=== PATIENT | male | born 1980 | race Caucasian/White ===

== ENCOUNTER 2017-01-28 23:14 | Inpatient (IN) ==
[2017-01-29 00:19] LABS: Basophils % 0.6 % (0.0-0.8); Eosinophils # 0.1 10*3/uL (0.0-0.87); Eosinophils % 2.2 % (0.00-10.9); Hematocrit 34.9 VOL% (42.0-52.0); Hemoglobin 12.4 GM/DL (14.0-18.0); Immature Granulocytes % 0.4 %; Immature Granulocytes Absolute 0.02 #; Lymphocytes # 1.8 10*3/uL (1.4-4.0); Lymphocytes % 34.3 % (21.2-54.2); Mean Corpuscular HGB Conc 35.5 GM/DL (32-36); Mean Corpuscular Hemoglobin 32 PG (27-34); Mean Corpuscular Volume 89.7 FL (87-102); Monocytes # 0.5 10*3/uL (0.11-0.8); Neutrophils # 2.7 10*3/uL (1.4-7.4); Neutrophils % 53.5 % (38.7-73.9); Platelet Count 265 T/CUMM (130-400); Red Blood Count 3.89 MC/CUMM (3.8-5.5); Red Cell Distribution Width 12.6 % (9.3-17.3); White Blood Count 5.1 T/CUMM (4-12)
[2017-01-29 00:29] LABS: Partial Thromboplastin Time 24.7 SECS (0-40)
[2017-01-29 00:35] LABS: Calcium 7.9 MG/DL (8.5-10.1); Magnesium 2.1 MG/DL (1.8-2.4); Osmolality,Calculated 290.6 MOS/KG (273-304); Potassium 3.7 MMOL/L (3.5-5.1)
[2017-01-29] MEDS ORDERED: MORPHINE 2 MG/1 ML SYRINGE IV STA (00:35)
[2017-01-29] MEDS ORDERED: NITROGLYCERIN SL 0.4 MG TABLET SL STA (00:35)
[2017-01-29] MEDS ORDERED: MORPHINE 2 MG/1 ML SYRINGE ONE (00:39)
[2017-01-29 00:54] LABS: Troponin I Only < 0.015 NG/ML (0.00-0.045)
--- NOTE | 2017-01-29 01:13 | Emergency Department Note ---
Edy Moss Brittany, am scribing for, and in the presence of, Roderick Rice MD 23 :45. Krystal Moss Hans, MD, personally performed the services described in this documentation, ascribed by Crista Snow in my presence, and it is both accurate and complete . Arrival - Arrival Chief Complaint: Chest Pain Stated Complaint: chest pain ED Nursing Triage Note: Pt was at home when he begain having severe chest pain. States he was upset when it begain hurting. Has history of stents x3. Pt states "he feels like he was hit in the chest with a baseball bat." Denies diaphoresis , n/v. Mode of Arrival: Stretcher Limitations: No Limitations Source: Patient, RN Notes Reviewed Time Seen by Provider: 01/28/17 23:36 - History of Present Illness HPI Narrative: Patient is a 36 y/o white male presenting to the ED by EMS with c/o severe chest pain which has been ongoing intermittently x2 weeks, worsening tonight. Patient states that he's had some dizziness this morning and diaphoresis, but denies any radiation of pain, abdominal pain, N/V. 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 Patient notes that he has had stent placement x3 per Dr. Pang. Does not take any blood thinners. Reports that he has an appointment with Dr. Pang for Monday, January 30. Patient has no other complaint/pain. Onset (ago): week(s) (2) Consistency: constant Severity: severe Severity scale (1-10): 9 Quality: aching Allergies/Adverse Reactions: Allergies Allergy/AdvReac Type Severity Reaction Status Date / Time No Known Allergies Allergy Unverified 01/28/17 23:29 Review of System - Review of System 12 point system: reviewed and no additional remarkable complaints except as stated - Review of System Constitutional: Present: diaphoresis. Absent: chills, fever Eyes: Absent: vision change Head/Ears/Nose/Throat: Absent: nasal drainage, sore throat Respiratory: Absent: respiratory distress Cardiovascular: Present: chest pain Gastrointestinal: Absent: abdominal pain, nausea, vomiting, diarrhea, constipation Genitourinary male: Absent: urgency, dysuria, frequency Musculoskeletal: Absent: arm pain, back pain, leg pain, neck pain Skin: Absent: rash Neurological: Present: vertigo. Absent: headache Psychiatric: Absent: anxiety, depression Medical,Surgical,& Family Hx - Medical History Cardio: History of: Hypertension, Cardiovascular Problems (leaking valve, stents x3) Endocrine: History of: Dyslipidemia - Surgical History Cardiac Surgeries: Sugical HX of: Cardiac Catheterization (2012) Exam Vital Signs: Vital Signs Temperature 98.9 F 01/28/17 23:15 Pulse Rate 88 01/28/17 23:15 Respiratory Rate 18 01/28/17 23:58 Blood Pressure 133/83 01/28/17 23:15 O2 Sat by Pulse Oximetry 100 01/28/17 23:15 - General General appearance: alert, in no apparent distress - Head Head exam: Present: atraumatic, normocephalic, normal inspection - Eye Eye exam: Present: normal appearance, PERRL, EOMI - ENT ENT exam: Present: normal exam, normal oropharynx - Neck Neck exam: Present: normal inspection, full ROM, trachea midline - Chest Chest inspection: Present: normal inspection, symmetric chest wall rise - Respiratory Respiratory exam: Present: normal lung sounds bilaterally - Cardiovascular Cardiovascular exam: Present: regular rate, normal rhythm, normal heart sounds - Abdominal Exam Abdominal exam: Present: soft, normal bowel sounds. Absent: tenderness - Extremities Exam Extremities exam: Present: normal inspection - Back Exam Back exam: Present: normal inspection - Neurological Exam Neurological exam: Present: alert, oriented X3, CN II-XII intact. Absent: motor sensory deficit - Psychiatric Psychiatric exam: Present: normal affect, normal mood - Skin Skin exam: Present: warm, dry Course Course Narrative: This patient was evaluated with chest x-ray, EKG, and blood work. His EKG [address] changes. Troponin was negative. Chest x-ray was unrevealing. I discussed his presentation with hospitalist on-call who agreed to come and see him for admission to rule out ACS. Results - Labs CBC & BMP: 01/28/17 00:00 01/28/17 00:00 Lab Results: I have reviewed the patients labs Labs: Laboratory Tests 01/28/17 01/28/17 01/28/17 00:00 00:00 00:00 WBC 5.1 RBC 3.89 Hgb 12.4 L Hct 34.9 L Plt Count 265 MPV 9.0 L INR 1.0 PT Patient/Control Mix 11.0 Circ Anticoag PTT 24.7 Sodium 146 H Potassium 3.7 Chloride 113 H Carbon Dioxide 27 BUN 6 L Creatinine 0.70 Glucose 158 H Calcium 7.9 L Total Creatine Kinase CK-MB (CK-2) Troponin I 01/28/17 00:00 WBC RBC Hgb Hct Plt Count MPV INR PT Patient/Control Mix Circ Anticoag PTT Sodium Potassium Chloride Carbon Dioxide BUN Creatinine Glucose Calcium Total Creatine Kinase 138 CK-MB (CK-2) < 1.0 Troponin I < 0.015 Disposition Clinical Impression: Chest pain Case discussed with: patient, patient's family Disposition: Still a Patient Condition: Stable Instructions: Angina (ED) Time of Disposition: 01:13
[2017-01-29] MEDS ORDERED: ACETAMINOPHEN 325 MG TABLET PO PRN (02:22)
[2017-01-29] MEDS ORDERED: NITROGLYCERIN SL 0.4 MG TABLET SL PRN (02:29)
[2017-01-29] MEDS ORDERED: METOPROLOL TARTRATE 25 MG TABLET PO ONE ×2 (02:31→05:00)
--- NOTE | 2017-01-29 02:34 | Hospitalist History & Physical ---
Assessment and Plan (1) Unstable angina Status: Acute Assessment and plan: Patient has new onset of chest pain with history of coronary artery disease normal troponin levels. We will order a repeat EKG and troponin for morning. Continue sublingual nitroglycerin as needed. Continue aspirin daily. Identify home medications I will give her dose of metoprolol until medication identified. I will also start on IV heparin due to his significant history of coronary artery disease and new onset angina. 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 Pang Current Visit: Yes (2) Hypertension Status: Chronic Assessment and plan: Blood pressure is controlled. Home medication to be identified Current Visit: Yes (3) Dyslipidemia Status: Chronic Assessment and plan: Patient has a history of dyslipidemia and according to him he is on 2 statins both Lipitor and Crestor. Medication doses to be identified but I will not start on 2 different statins and will defer to his concrete tile machine operator who has initiated this therapy. I will to get lipid panel in the morning. In addition I will get a CPK and liver function test Current Visit: Yes History of Present Illness Chief complaint: Chest pain History of present illness: Mr. Guillen is a 36 year old male with history of hypertension coronary artery disease had 3 stents in 2012 and dyslipidemia. He presented to ER with a chest pain for a week. It mostly on exertion but sometime on the rest radiated to chain feel like heavier squeezing pain. The associated shortness of breath but no nausea vomiting diarrhea abdominal pain fever cough or diaphoresis reported. In the ER patient was given morphine and nitroglycerin and pain is improved that. His EKG was normal sinus rhythm and troponin was within normal limits. Patient is being followed by Dr. Pang and he was supposed to see him next week. Allergies Allergy/AdvReac Type Severity Reaction Status Date / Time No Known Allergies Allergy Unverified 01/28/17 23:29 Medical,Surgical,& Family Hx - Medical History Cardio: History of: Hypertension, Cardiovascular Problems (leaking valve, stents x3) Endocrine: History of: Dyslipidemia - Surgical History Cardiac Surgeries: Sugical HX of: Cardiac Catheterization (2012) - Social History Smoking Status: Former smoker Frequency of Alcohol Use: Rarely Type of Drug Use: None 12 point system: reviewed and no additional remarkable complaints except as stated (Mentioned in HPI) Exam - Constitutional Vitals: Period Temp Pulse Resp BP Sys/Luna Pulse Ox Last 24 Hr 98.9 F-98.9 F 83-88 18-18 133-133/83-83 100 General appearance: over weight - Head Head exam: Present: normal inspection, normocephalic - Eye Eye exam: Present: EOMI Pupils: Present: SOCRATES, normal accommodation - ENT ENT exam: Present: normal exam, normal oropharynx - Neck Neck exam: Present: normal inspection, other (Supple) - Respiratory Respiratory exam: Present: clear to auscultation bilaterally. Absent: accessory muscle use, rales, rhonchi, wheezes - Cardiovascular Cardiovascular exam: Present: regular rate and rhythm. Absent: bradycardia, tachycardia - GI/Abdominal GI/Abdominal exam: Present: soft. Absent: normal bowel sounds, distended, tenderness - Extremities Exam Extremities exam: Present: normal inspection. Absent: edema - Neurological Exam Neurological exam: Present: alert, oriented X3 - Psychiatric Psychiatric exam: Present: normal affect, normal mood Results - Labs CBC & BMP: 01/28/17 00:00 01/28/17 00:00 Lab Results: I have reviewed the past 24 hour labs
[2017-01-29 02:43] LABS: Basophils % 0.8 % (0.0-0.8); Eosinophils # 0.1 10*3/uL (0.0-0.87); Eosinophils % 1.7 % (0.00-10.9); Hematocrit 35.5 VOL% (42.0-52.0); Hemoglobin 12.6 GM/DL (14.0-18.0); Immature Granulocytes % 0.4 %; Immature Granulocytes Absolute 0.02 #; Lymphocytes # 1.8 10*3/uL (1.4-4.0); Lymphocytes % 33.4 % (21.2-54.2); Mean Corpuscular HGB Conc 35.5 GM/DL (32-36); Mean Corpuscular Hemoglobin 32 PG (27-34); Mean Corpuscular Volume 90.1 FL (87-102); Mean Platelet Volume 9.3 FL (9.6-12.0); Monocytes # 0.5 10*3/uL (0.11-0.8); Monocytes % 9.9 % (1.7-12.7); Neutrophils # 2.8 10*3/uL (1.4-7.4); Neutrophils % 53.8 % (38.7-73.9); Platelet Count 260 T/CUMM (130-400); Red Blood Count 3.94 MC/CUMM (3.8-5.5); Red Cell Distribution Width 12.6 % (9.3-17.3); White Blood Count 5.2 T/CUMM (4-12)
[2017-01-29] MEDS: HEPARIN DRIP 25,000 UNITS/500 ML PREMIX IV SCH ×2 (05:46→21:57)
[2017-01-29] MEDS: SODIUM CHLORIDE 0.45% 1,000 ML IV SCH ×3 (05:50→21:53)
[2017-01-29 06:30] LABS: Osmolality,Calculated 290.4 MOS/KG (273-304); Potassium 3.8 MMOL/L (3.5-5.1)
[2017-01-29 06:48] LABS: Albumin 3.3 G/DL (3.4-5.0); Bilirubin,Direct 0.1 MG/DL (0.0-0.20); Bilirubin,Indirect 0.4 MG/DL (0.0-1.0); Bilirubin,Total 0.5 MG/DL (0.2-1.0); Risk Ratio 4.69; Total Protein 6.1 G/DL (6.4-8.3); VLDL CHOLESTEROL 42.2 MG/DL
--- NOTE | 2017-01-29 07:23 | EKG Report ---
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
--- NOTE | 2017-01-29 09:35 | Event Note ---
Chart is been reviewed and patient examined. Agree with Dr. Moon's assessment and plans. 36-year-old white male with a history of known coronary artery disease status post stenting who was admitted for chest pain last evening. He is now being treated medically and cardiology has been consulted.
--- NOTE | 2017-01-29 09:45 | XRay Report ---
XR chest 2V Indication: Chest pain. Comparison: Chest x-ray 09/30/2013. Technique: PA and lateral chest x-ray was performed. Findings: Heart size, mediastinal contour, and hilar structures demonstrate no significant abnormalities. The lung parenchyma is clear. Bones and soft tissues demonstrate no significant abnormalities. Multiple remote rib fractures of the right rib cage appears stable. Impression: 1. No active cardiopulmonary disease. 01/29/2017 9:04 AM PROCEDURE INTERPRETED AT [facility] DEPARTMENT OF RADIOLOGY Final Report Signed by: Dr. Pablo De Guzman
[2017-01-29] MEDS ORDERED: ONDANSETRON 4 MG/2 ML VIAL IV PRN (10:27)
[2017-01-29] MEDS ORDERED: MORPHINE 2 MG/1 ML SYRINGE IV ONE (10:27)
[2017-01-29] MEDS: HEPARIN 5,000 UNIT/1 ML VIAL IV PRN ×2 (12:15→18:41)
--- NOTE | 2017-01-29 13:56 | Cardiology Consult Note ---
History of Present Illness - Data of Consult Patient: known to practice within the last 3 years Consult date: 01/29/17 - Consult Narrative History of present illness: Cardiology consult note 36-year-old man with 2 week history of exertional dyspnea and recurrent chest pain. Working in the garden, climbing a hill and stress at work and precipitated midsternal chest pain. The patient has no sublingual nitro at home. Troponin negative 2. EKG shows normal sinus rhythm with ST-T wave changes. Chest x-ray shows normal heart size with no infiltrate or effusion and old right rib fractures. The patient has documented CAD. Last cardiac cath March 18, [address] Pang. The mid LAD was stented with a 3.5 x 12 and 3.0 x 12 x Ion stents in the distal right coronary was stented with a 2.25 x 24 Ion stent. At that time the mid circumflex head 50% stenosis and the ejection fraction 65%. Patient has had no stress test since his heart cath. He was smoking 2 packs per day but quit following his stent procedure in 2010. The patient was consuming up to one case of beer per day but quit about 3 weeks ago. He is 6 feet 2 inches tall 297 pounds. His weight is been stable. He was recently switched to Crestor 40 mg daily for his hyperlipidemia. The patient has suspected DAYANARA. He snores loudly and has restless legs. He has nocturia once or twice nightly. No history of peptic ulcer but he does have GE reflux symptoms and takes proton pump inhibitors. No history of stroke. No history of diabetes. Father of a heart attack age 66. Mother had a mastectomy for breast cancer and is 70 years old. His brother is 54 and has hypertension and high cholesterol. Uncle has coronary stents. Maternal grandfather of a heart attack. No allergies. The patient is and has 2 children. 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 The job is described as very stressful. Lab data White count 5.2 hemoglobin 12.6 hematocrit 35.5 INR 1.0 sodium 147 potassium 3.8 chloride 112 CO2 29 BUN 7 creatinine 0.60 glucose 119 magnesium 2.1 AST 116 ALT 108 alk phos 118 triglycerides 211 cholesterol 183 LDL 115 HDL 39 Blood pressure 146/80 pulse 82 respirations 18 bilateral arcus no xanthelasma no carotid bruit flat neck veins decreased breath sounds but clear regular rhythm no murmur or gallop abdomen obese soft benign femoral pulses 2+ without bruit distal pulses 2+ symmetric Impression Unstable angina. Exertional chest pain and was stressed for the past 2 weeks, probably longer. Troponin negative 2 and EKG negative Status post mid LAD stent 2 and distal circumflex stent March 18, [address] Pang EF 65%. Chronic hypertension Hyperlipidemia Remote heavy tobacco abuse, quit 2010 Obesity 6 feet 20 tall 297 pounds EtOH abuse. Patient had been consuming up to one case of beer per day DAYANARA suspected Restless legs Positive family history CAD Poor insight into his medical condition Plan IV heparin Metoprolol aspirin Cardiac cath possible stent in a.m. procedure, risk benefits discussed in detail with the patient and his with nurse Vaughn present for the entire discussion. All questions answered. He agrees to proceed as outlined. Normal saline hydration Consult Dr. Wilks for sleep study evaluation tomorrow This patient will require aggressive lifestyle changes and risk factor modification CC: Annamaria Padron - Home Medications and Allergies Home Medications: Home Medications Medication Instructions Recorded Confirmed Type Amlodipine Besylate [Amlodipine 5 mg PO DAILY 01/29/17 01/29/17 History Besylate] Aspirin 81 mg PO DAILY 01/29/17 01/29/17 History Esomeprazole Magnesium [Nexium] 20 mg PO DAILY 01/29/17 01/29/17 History Metoprolol Tartrate 25 mg PO DAILY 01/29/17 01/29/17 History Multivitamin with Minerals 1 each PO DAILY 01/29/17 01/29/17 History [Multivitamins with Minerals] Omeprazole 20 mg PO DAILY 01/29/17 01/29/17 History Rosuvastatin Calcium 40 mg PO DAILY 01/29/17 01/29/17 History Allergies/Adverse Reactions: Allergies Allergy/AdvReac Type Severity Reaction Status Date / Time No Known Allergies Allergy Unverified 01/28/17 23:29 Medical,Surgical,& Family Hx - Medical History Cardio: History of: Hypertension, Cardiovascular Problems (leaking valve, stents x3) Endocrine: History of: Dyslipidemia - Surgical History Cardiac Surgeries: Sugical HX of: Cardiac Catheterization (2012) - Family History Family History: Reports;: Family Heart Disease (dad (3 bypass)) - Social History Smoking Status: Former smoker Frequency of Alcohol Use: Rarely Type of Drug Use: None Physical Examination Vital Signs Temp Pulse Resp BP Pulse Ox 98.9 F 88 18 133/83 100 01/28/17 23:15 01/28/17 23:15 01/28/17 23:15 01/28/17 23:15 01/28/17 23:15 Result/EKG - Labs CBC & BMP: 01/29/17 00:09 01/29/17 05:03 Labs: Laboratory Results - last 24 hr 01/28/17 01/28/17 01/28/17 00:00 00:00 00:00 WBC 5.1 RBC 3.89 Hgb 12.4 L Hct 34.9 L MCV 89.7 MCH 32 MCHC 35.5 RDW 12.6 Plt Count 265 MPV 9.0 L Neut % (Auto) 53.5 Lymph % (Auto) 34.3 [place] % (Auto) 9.0 Eos % (Auto) 2.2 Baso % (Auto) 0.6 Neut # (Auto) 2.7 Lymph # (Auto) 1.8 [place] # (Auto) 0.5 Eos # (Auto) 0.1 Baso # (Auto) 0.0 Immature Gran % 0.4 Nucleated RBC % 0.0 Immature Gran # 0.02 Nucleated RBCs # 0.00 Immature Plt Fraction 0.0 INR 1.0 PT Patient/Control Mix 11.0 Circ Anticoag PTT 24.7 Sodium 146 H Potassium 3.7 Chloride 113 H Carbon Dioxide 27 Anion Gap 9.7 BUN 6 L Creatinine 0.70 GFR Calculation 173 BUN/Creatinine Ratio 8.00 Glucose 158 H Calculated Osmolality 290.6 Calcium 7.9 L Magnesium 2.1 Total Bilirubin Direct Bilirubin Indirect Bilirubin AST ALT Alkaline Phosphatase Total Creatine Kinase CK-MB (CK-2) Troponin I Total Protein Albumin Triglycerides Cholesterol LDL Cholesterol VLDL Cholesterol HDL Cholesterol Heart Disease Risk Ratio 01/28/17 01/29/17 01/29/17 00:00 00:09 05:03 WBC 5.2 RBC 3.94 Hgb 12.6 L Hct 35.5 L MCV 90.1 MCH 32 MCHC 35.5 RDW 12.6 Plt Count 260 MPV 9.3 L Neut % (Auto) 53.8 Lymph % (Auto) 33.4 [place] % (Auto) 9.9 Eos % (Auto) 1.7 Baso % (Auto) 0.8 Neut # (Auto) 2.8 Lymph # (Auto) 1.8 [place] # (Auto) 0.5 Eos # (Auto) 0.1 Baso # (Auto) 0.0 Immature Gran % 0.4 Nucleated RBC % 0.0 Immature Gran # 0.02 Nucleated RBCs # 0.00 Immature Plt Fraction 0.0 INR PT Patient/Control Mix Circ Anticoag PTT Sodium 147 H Potassium 3.8 Chloride 112 H Carbon Dioxide 29 Anion Gap 9.8 BUN 7 Creatinine 0.60 L GFR Calculation 191 BUN/Creatinine Ratio 11.00 Glucose 119 H Calculated Osmolality 290.4 Calcium 8.0 L Magnesium Total Bilirubin Direct Bilirubin Indirect Bilirubin AST ALT Alkaline Phosphatase Total Creatine Kinase 138 CK-MB (CK-2) < 1.0 Troponin I < 0.015 Total Protein Albumin Triglycerides Cholesterol LDL Cholesterol VLDL Cholesterol HDL Cholesterol Heart Disease Risk Ratio 01/29/17 01/29/17 01/29/17 05:03 05:03 11:35 WBC RBC Hgb Hct MCV MCH MCHC RDW Plt Count MPV Neut % (Auto) Lymph % (Auto) [place] % (Auto) Eos % (Auto) Baso % (Auto) Neut # (Auto) Lymph # (Auto) [place] # (Auto) Eos # (Auto) Baso # (Auto) Immature Gran % Nucleated RBC % Immature Gran # Nucleated RBCs # Immature Plt Fraction INR PT Patient/Control Mix Circ Anticoag PTT 33.4 D Sodium Potassium Chloride Carbon Dioxide Anion Gap BUN Creatinine GFR Calculation BUN/Creatinine Ratio Glucose Calculated Osmolality Calcium Magnesium Total Bilirubin 0.50 Direct Bilirubin 0.10 Indirect Bilirubin 0.4 AST 116 H ALT 108 H Alkaline Phosphatase 118 H Total Creatine Kinase 120 CK-MB (CK-2) Troponin I 0.016 Total Protein 6.1 L Albumin 3.3 L Triglycerides 211 H Cholesterol 183 LDL Cholesterol 115.0 VLDL Cholesterol 42.2 HDL Cholesterol 39 L Heart Disease Risk Ratio 4.69 Specialty Discharge - Follow Up or Referrals
[2017-01-29] MEDS ORDERED: POTASSIUM CHLORIDE RIDER 10 MEQ in PREMIX 1 EACH IV PRN (13:57)
[2017-01-29] MEDS ORDERED: MAGNESIUM SULF RIDER 2 GM in PREMIX 1 EACH IV PRN (13:57)
[2017-01-29] MEDS ORDERED: DIAZEPAM 5 MG TABLET PO ONE (13:57)
[2017-01-29] MEDS ORDERED: diphenhydrAMINE CAP 25 MG CAPSULE PO ONE (13:57)
--- NOTE | 2017-01-29 13:57 | History and Physical Update ---
Sedation H&P Update - History and Physical H&P was reviewed, the patient examined and there: are no changes in the patients condition since last H&P was completed. - Dictation Physical: refer to H&P completed by admitting physician - Sedation Patient Consent: Procedure disscussed with patient and patinet has consented., Risks and benefits were discussed with patient,including infection,, bleeding, injury to surrounding structures, seizure, temporary nerve, Patient understands and accepts potential risks/benefits and agrees to, proceed. ASA Class: II Airway Assessment: Class II: Soft palate, uvula, fauces visible
[2017-01-29] MEDS: PANTOPRAZOLE 40 MG TABLET PO SCH (14:24)
[2017-01-29] MEDS: ASPIRIN 325 MG TABLET PO SCH (14:24)
--- NOTE | 2017-01-29 17:05 | ECHO Report ---
Kenneth Guillen Exam Date: 01/29/2017 12:47 Referring Physician: Technologist: Zena Alejandro RDCS Age: 36 Ht (in): 74 Wt (lb): 297 Gender: M Exam [facility]: [facility] Echo Indications: Chest pain, unspecified, Shortness of breath, Essential (primary) hypertension, CAD with previous stents, Hyperlipidemia, unspecified BP: 140 / 79 HR: 70 Rhythm: Sinus Technical Quality: Fair IMPRESSIONS Normal left ventricular cavity size. EF 55-60 %. Grade II/IV diastolic dysfunction, moderately elevated filling pressures. The right ventricle is normal in size and function. The right atrium is normal in size. The left atrium is mildly enlarged. Morphologically normal mitral valve. Trace mitral valve regurgitation. Aortic valve sclerosis. Trace aortic valve regurgitation. Mild tricuspid valve regurgitation. [id number]. Pulmonic valve not well visualized. Normal pericardium without effusion. Normal ascending aorta dimension. MEASUREMENTS (Male / Female) Normal Values 2D ECHO LV Diastolic Diameter PLAX 4.5 cm 4.2 - 5.9 / 3.9 - 5.3 cm LV Systolic Diameter PLAX 2.9 cm LV Fractional Shortening PLAX 35.0 % IVS Diastolic Thickness 1.2 cm 0.6 - 1.0 / 0.6 - 0.9 cm LVPW Diastolic Thickness 1.3 cm 0.6 - 1.0 / 0.6 - 0.9 cm RV Internal Dim ED PLAX 3.3 cm Aortic Root Diameter 3.5 cm LA Systolic Diameter LX 4.5 cm 3.0 - 4.0 / 2.7 - 3.8 cm DOPPLER TR Peak Velocity 271.0 cm/s TR Peak Gradient 29.4 mmHg FINDINGS Left Ventricle Normal left ventricular cavity size.EF 55-60 %. Grade II/IV diastolic dysfunction, moderately elevated filling pressures. . Left ventricular ejection fraction is estimated at 60 %. Right Ventricle The right ventricle is normal in size and function. Right Atrium The right atrium is normal in size. Left Atrium The left atrium is mildly enlarged. Mitral Valve Morphologically normal mitral valve. Trace mitral valve regurgitation. Aortic Valve Aortic valve sclerosis. Trace aortic valve regurgitation. Tricuspid Valve Morphologically normal tricuspid valve. Mild tricuspid valve regurgitation. [id number]. Pulmonic Valve Pulmonic valve not well visualized. Pericardium Normal pericardium without effusion. Aorta Normal ascending aorta dimension. Pete Plavac (Electronically Signed) Final Date: 29 January 2017 17:04
[2017-01-29] MEDS ORDERED: HEPARIN 5,000 UNIT/1 ML VIAL IV PRN (18:37)
--- NOTE | 2017-01-30 02:21 | EKG Report ---
Stationary ECG Study 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
[2017-01-30] MEDS: SODIUM CHLORIDE 0.45% 1,000 ML IV SCH ×4 (02:33→18:42)
[2017-01-30] MEDS ORDERED: diphenhydrAMINE CAP 25 MG CAPSULE PO ONE ×2 (06:00→10:30)
[2017-01-30] MEDS ORDERED: DIAZEPAM 5 MG TABLET PO ONE ×2 (06:00→10:30)
[2017-01-30] MEDS: HEPARIN DRIP 25,000 UNITS/500 ML PREMIX IV SCH (07:17)
--- NOTE | 2017-01-30 08:30 | EKG Report ---
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
[2017-01-30] MEDS: PANTOPRAZOLE 40 MG TABLET PO SCH (08:38)
[2017-01-30] MEDS: ASPIRIN 325 MG TABLET PO SCH (08:38)
[2017-01-30] MEDS ORDERED: LIDOCAINE 1% 20 ML VIAL ONE (09:27)
[2017-01-30] MEDS ORDERED: HEPARIN/NACL 0.9% 2 UNITS/ML 1,000 ML IV ONE (09:27)
[2017-01-30] MEDS ORDERED: HYDROmorphone 2 MG/1 ML VIAL ONE ×2 (09:52→10:09)
[2017-01-30] MEDS ORDERED: MIDAZOLAM 2 MG/2 ML VIAL ONE ×2 (09:53→10:09)
[2017-01-30] MEDS ORDERED: BIVALIRUDIN 250 MG VIAL IV ONE (10:30)
[2017-01-30] MEDS ORDERED: TICAGRELOR 90 MG TABLET ONE (10:49)
[2017-01-30] MEDS ORDERED: ZALEPLON 5 MG CAPSULE PO PRN (11:18)
--- NOTE | 2017-01-30 11:18 | Cardiac Catheterization ---
Date of Procedure:: 01/30/17 Pre-op Diagnosis: Chest pain CAD Post-op diagnosis: same Procedure: Cardiac catheterization procedure note #1 left heart catheterization #2 selective coronary angiography #3 left ventriculography #4 successful proximal RCA stent Omnipaque was used for the procedure Description of procedure Following sterile preparation draping of the right groin, local anesthesia was achieved by infiltration with 1% Xylocaine. Using a Cook needle the right femoral artery was cannulated and a #6 sheath was inserted. A 6 Eritrean pigtail catheter was advanced retrograde across the valve into the left ventricle and the end-diastolic pressure was recorded. Left ventriculography was performed the MCKEON projection using 24 cc of contrast material. A pullback recordings made across the aortic valve. The pigtail catheter was exchanged for a 6 Eritrean left Drew catheter and left coronary angiography was performed in several MCKEON and STATELESS projections. Catheter change for a 6 [place]rit[place]an right Amplatz catheter right coronary angiography was performed in MCKEON and STATELESS projections. Catheter change for a 6 Erit[place]an right Drew guiding catheter and right coronary was recannulated. A blindstitch machine operator film was obtained. The patient was both Angiomax and placed on infusion per protocol. A 0.014 pro-water flex wire was introduced and advanced across the lesion and placed into the distal right coronary direct stenting was then performed using a 3.25 x 18 mm Zions drug- eluting stent. Several flush injections confirmed good positioning of the stent. The maximum inflation pressure was 16 whitney for 30 seconds, creating a 3.47 mm lumen. The balloon was then deflated and proper to the guiding catheter with a guidewire across the lesion. Repeat angiography demonstrated a widely patent vessel with mild residual narrowing, no dissection and brisk runoff. The guidewire was then removed and repeat angiography again confirmed a widely patent vessel with excellent runoff. The guiding catheter and sheath were then removed and the femoral arteriotomy site was sealed percutaneously minx closure device with prompt cessation of bleeding and probably turn of femoral and foot pulses. No complications ensued. The patient was transferred back to telemetry in stable condition. Hemodynamic data Aortic pressure 122/74 mean of 103 Left ventricle 1 2 08/16 Selective coronary angiography Left main trunk is widely patent and bifurcates. The LAD is a moderate-sized vessel wraps around the apex. The proximal and mid stent sites are widely patent. The distal LAD has mild disease only. There is a small jailed diagonal branch with severe disease that is not amenable to catheter-based intervention. The first OM branch is widely patent. The second OM branch has 40% stenosis. The dominant coronary artery has a 75% proximal stenosis. The posterior LV branch stent site is widely patent. The PDA has mild disease only. Left ventriculography The ejection fraction is 60%. No wall motion abnormalities. No mitral regurgitation under the conditions of the study. Conclusions #1 increased LVEDP 14 #2 ejection fraction 60% with no wall motion abnormalities #3 no mitral regurgitation #4 no aortic valve gradient #5 left main trunk-patent #6 LAD-widely patent proximal mid stent sites #7 circumflex-Widely patent OM and 40% mid OM 2 #8 dominant RCA-75% proximal with patent posterior LV branch stent site and mild disease in the PDA. #9 successful proximal RCA stent using a 3.25 x 18 mm Zions drug-eluting stent. The maximum inflation pressure 16 whitney for 30 seconds, creating a 3.47 mm lumen. Good result obtained. Disposition The patient is status post proximal and mid LAD stent 2 and stenting of the posterior LV branch March 18, 2011. Both stent sites remain patent. There has been severe disease progression in the proximal right coronary which was stented today with a 3.25 x 18 mm Zions drug-eluting stent, postdilated to 16 whitney, creating a 3.47 mm lumen. Good result obtained. He will remain on aspirin Brilinta and Crestor therapy. He will continue normal saline hydration. A BMP and CPK troponin rechecked in the morning. In addition, he will require aggressive lifestyle change risk factor modification. Cine pictures were reviewed with the patient's Jelena. 1 Implants: Successful proximal RCA stent, 3.25 x 18 Zions drug-eluting stent, postdilated to a 3.47 mm lumen. Good result obtained. Anesthesia: moderate conscious sedation Surgeon / Physician: Balbir hCicas Estimated blood loss: minimal Specimens: none sent Condition: stable Disposition: floor - Medications / Follow-up
[2017-01-30] MEDS ORDERED: NON-FORMULARY MEDICATION (Esomeprazole Magnesium [Nexium] 20 MG) PO SCH (11:30)
[2017-01-30] MEDS ORDERED: METOPROLOL TARTRATE 25 MG TABLET PO SCH (11:30)
--- NOTE | 2017-01-30 11:39 | Hospitalist Progress Note ---
Assessment and Plan (1) Unstable angina Status: Acute Assessment and plan: heart cath today prox rca stent, current on asa, brilinta Current Visit: Yes (2) DAYANARA (obstructive sleep apnea) Status: Acute Assessment and plan: Dr. Wilks consulted Current Visit: Yes (3) Hypertension Status: Chronic Assessment and plan: metoprolol 25 mg po bid Current Visit: Yes (4) Dyslipidemia Status: Chronic Assessment and plan: crestor 40 mg po daily Current Visit: Yes Hospitalist: Subjective Interval history: Patient is morbidly obese. He has a short neck. Speaking with his he does snore. He does wake up tired all the time. Headaches are not as severe as they used to be. I will have Dr. Wilks see him for sleep apnea. He is awaiting his heart cath at this time. He reports no chest pain at this time. Exam - Constitutional Vitals: Period Temp Pulse Resp BP Sys/Luna Pulse Ox Last 24 Hr 97.3 F-99.3 F 65-84 16-18 115-159/67-93 95-99 Exam: Heart Rate-[RRR] Lungs-[CTAB] GI-[+bs soft, NT] Ext-[no edema] Neuro [Motor 5/5], [alert and oriented times 3] psych [normal mood and affect] General [no acute distress] Results - Labs CBC & BMP: 01/29/17 00:09 01/29/17 05:03 Lab Results: I have reviewed the past 24 hour labs Quality Measures - VTE Contraindication to Mechanical VTE Prophylaxis: Trauma to Legs Specialty Discharge - Follow Up or Referrals
--- NOTE | 2017-01-30 12:29 | EKG Report ---
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
--- NOTE | 2017-01-30 16:16 | Sleep Medicine Consult ---
Assessment and Plan (1) Unspecified sleep apnea Status: Acute Assessment and plan: Mr. Guillen describes symptoms that are very suggestive for underlying sleep apnea. On physical exam, he is obese with a BMI of 38.2 and has a Mallampati class IV exam. He has a short, thick neck and has a significant history of heart disease. I offered him an HSAT for tonight but both he and his declined. He would rather have a in-house sleep study as he reports his sleep is very disrupted and inadequate while at the hospital. I will have him set up for an overnight polysomnography at his earliest convenience. I further discussed obstructive sleep apnea as well as the testing and treatments that are recommended. He verbalized understanding and wishes to proceed. Current Visit: Yes History of Present Illness Chief complaint: unspecified sleep apnea History of present illness: Mr. Guillen is a 36 year old male who was admitted through the emergency room Monday night with acute onset chest pain. He has a known history of heart disease with prior stent placement in 2010. Earlier today he underwent repeat cardiac catheterization and another coronary stent was placed. In addition to his significant heart disease, he is obese. His is at his bedside and states that her has snored very loud for many years. She has not witnessed any apneas during his sleep. He reports going to bed around 8 PM and awakens at 4 AM. 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 Most days, he awakens refreshed and denies any sleepiness or fatigue. He denies any episodes of drowsy driving but has occasionally dozed off while sitting at his desk at work. He is able to sleep in varying positions at night and denies any orthopnea. He has no tobacco use but does admit to daily alcohol use. There is no report of illicit drug use. He has no known family history of heart disease but states his mother had a very difficult time with her sleep. Home Medications Medication Instructions Recorded Confirmed Type Amlodipine Besylate [Amlodipine 5 mg PO DAILY 01/29/17 01/29/17 History Besylate] Aspirin 81 mg PO DAILY 01/29/17 01/29/17 History Esomeprazole Magnesium [Nexium] 20 mg PO DAILY 01/29/17 01/29/17 History Metoprolol Tartrate 25 mg PO DAILY 01/29/17 01/29/17 History Multivitamin with Minerals 1 each PO DAILY 01/29/17 01/29/17 History [Multivitamins with Minerals] Omeprazole 20 mg PO DAILY 01/29/17 01/29/17 History Rosuvastatin Calcium 40 mg PO DAILY 01/29/17 01/29/17 History Allergies Allergy/AdvReac Type Severity Reaction Status Date / Time No Known Allergies Allergy Unverified 01/28/17 23:29 - Constitutional Constitutional: Present: night sweats. Absent: daytime sleepiness, fatigue, stops breathing during sleep - EENT Nose, mouth and throat: Absent: headache(s), nasal congestion, sore throat - Cardiovascular Cardiovascular: Present: chest pain with activity, dyspnea on exertion. Absent : chest pain at rest, dyspnea, orthopnea, palpitations - Respiratory Respiratory: Present: snoring. Absent: cough, wheezing - Gastrointestinal Gastrointestinal: Present: heartburn. Absent: constipation, nausea - Genitourinary Genitourinary: Absent: difficulty urinating, urinary frequency - Psychiatric Psychiatric: Absent: anxiety, depression Exam (Pulmonay) H&P - Constitutional Vitals: Period Temp Pulse Resp BP Sys/Luna Pulse Ox Last 24 Hr 96.7 F-99.3 F 64-84 16-20 115-159/59-88 95-100 General appearance: over weight - Head Head exam: Present: normocephalic, atraumatic - Eye Pupils: Present: SOCRATES - ENT ENT exam: Present: other (Mallampati class IV) - Expanded ENT Exam ENT Exam Mouth exam: Present: moist Teeth exam: Absent: dental caries Throat exam: Absent: post pharyngeal edema, post pharyngeal erythema - Neck Neck exam: Present: other (short neck). Absent: lymphadenopathy, thyromegaly - Respiratory Respiratory exam: Present: clear to auscultation bilaterally. Absent: rales, rhonchi, wheezes - Cardiovascular Cardiovascular exam: Present: irregular rhythm - GI/Abdominal GI/Abdominal exam: Present: normal bowel sounds, soft. Absent: tenderness - Extremities Exam Extremities exam: Present: normal capillary refill. Absent: edema - Neurological Exam Neurological exam: Present: oriented X3 - Psychiatric Psychiatric exam: Present: normal affect, normal mood - Skin Skin exam: Present: warm, dry Medical,Surgical,& Family Hx - Medical History Cardio: History of: Hypertension, Cardiovascular Problems (leaking valve, stents x3) Endocrine: History of: Dyslipidemia - Surgical History Cardiac Surgeries: Sugical HX of: Cardiac Catheterization (2013) - Family History Family History: Reports;: Family Heart Disease (dad (3 bypass)) - Social History Smoking Status: Former smoker Frequency of Alcohol Use: Rarely Type of Drug Use: None Results - Labs CBC & BMP: 01/29/17 00:09 01/29/17 05:03 Quality Measures - VTE Contraindication to Mechanical VTE Prophylaxis: Trauma to Legs Specialty Discharge - Follow Up or Referrals
[2017-01-30] MEDS: TICAGRELOR 90 MG TABLET PO SCH (22:09)
[2017-01-30] MEDS: METOPROLOL TARTRATE 25 MG TABLET PO SCH (22:09)
[2017-01-31] MEDS: SODIUM CHLORIDE 0.45% 1,000 ML IV SCH ×2 (03:33→10:37)
[2017-01-31 05:47] LABS: Blood Urea Nitrogen 7 MG/DL (7-18); Calcium 8.2 MG/DL (8.5-10.1); Glucose 108 MG/DL (74-106); Osmolality,Calculated 275.5 MOS/KG (273-304); Potassium 3.6 MMOL/L (3.5-5.1); Sodium 139 MMOL/L (136-145)
[2017-01-31 05:49] LABS: Troponin I Only 0.196 NG/ML (0.00-0.045)
--- NOTE | 2017-01-31 07:52 | EKG Report ---
Stationary ECG Study [facility] Test Date: 01/31/2017 7:51:18 AM Pat Name: DEANA AN Department: Room: 281 Gender: M Long Distance Operator: EBONI : 1980 Requested by: Balbir Chicas Order Number: [id number] Reading MD: AKASH BRADLEY Intervals [place] Rate: 65 P: 46 SC: 175 QRS: 29 QRSD: 95 T: 44 QT: 410 QTc: 421 Interpretive Statements SINUS RHYTHM at 65 bpm WNL Electronically Signed On 01-31-17 08:26:56 CDT by AKASH BRADLEY [email or web address]
--- NOTE | 2017-01-31 08:16 | Cardiology Progress Note ---
<Luba Hernández - Last Filed: 01/31/17 08:07> Assessment and Plan (1) CAD (coronary artery disease) Status: Chronic Assessment and plan: See plan of care listed below. (2) Status post coronary artery stent placement Status: Acute Assessment and plan: See plan of care listed below. (3) Unspecified sleep apnea Status: Acute Assessment and plan: See plan of care listed below. (4) Unstable angina Status: Resolved Assessment and plan: See plan of care listed below. (5) Dyslipidemia Status: Chronic Assessment and plan: See plan of care listed below. (6) Hypertension Status: Chronic Assessment and plan: See plan of care listed below. (7) Elevated liver enzymes Status: Acute Assessment and plan: See plan of care listed below. Cardiology - PN: Subj Interval history: Instrument And Control Service Person: Dr. Chicas, per patient request SUMMARY Mr. Webster, 36-year-old male presented to [facility] with complaints concerning for angina. He has a past medical history of CAD (received PCI to mid LAD and distal RCA), dyslipidemia, hypertension, EtOH abuse, obesity and remote tobaccoism. Patient underwent cardiac catheterization January 30, 2017 with the following impressions noted: Conclusions #1 increased LVEDP 14 #2 ejection fraction 60% with no wall motion abnormalities #3 no mitral regurgitation #4 no aortic valve gradient #5 left main trunk-patent #6 LAD-widely patent proximal mid stent sites #7 circumflex-Widely patent OM and 40% mid OM 2 #8 dominant RCA-75% proximal with patent posterior LV branch stent site and mild disease in the PDA. #9 successful proximal RCA stent using a 3.25 x 18 mm Zions drug-eluting stent. The maximum inflation pressure 16 whitney for 30 seconds, creating a 3.47 mm lumen. Good result obtained. Disposition The patient is status post proximal and mid LAD stent 2 and stenting of the posterior LV branch March 18, 2011. Both stent sites remain patent. There has been severe disease progression in the proximal right coronary which was stented today with a 3.25 x 18 mm Zions drug-eluting stent, postdilated to 16 whitney, creating a 3.47 mm lumen. Good result obtained. He will remain on aspirin Brilinta and Crestor therapy. 01/31/17 UPDATE Post catheterization patient was transported back to the telemetry unit in stable condition. He has done well without complications. Right groin is soft without bleeding, hematoma and bruit. Distal pulses 2+. Patient has ambulated down the bacon without difficulty. Right groin has remained stable post ambulation. Groin precautions have been reviewed with the patient. He verbalizes understanding. He denies chest pain, heaviness and tightness. I have spent greater than 5 minutes discussing the importance of compliance with dual antiplatelet therapy. He verbalizes understanding. He will need to be discharged home on both Brilinta and aspirin. Liver enzymes are slightly elevated. Patient reports that he has been on both Lipitor and Crestor for quite some time due to confusion with his medications. Recommend that he be discharged home on Crestor as his LDL is 115. Will also add fish oil for hypertriglyceridemia. Labs have been reviewed. Creatinine is stable at 0.7 post catheterization. Patient is stable for discharge from a cardiac standpoint. He has been given a follow-up appointment with Dr. Chicas in 1-2 weeks with EKG and CBC. I will also get him an appointment to recheck his liver enzymes and lipid panel in 1 month. ASSESSMENT/PLAN 1. CAD, STATUS POST PCI TO pRCA - Patient is doing well post heart catheterization and has been without complications. Patient is stable for discharge home from a cardiac standpoint. Patient should receive the following at discharge: Brilinta 90 mg p.o. twice daily, metoprolol 25 mg p.o. twice daily , Crestor 40 mg daily and aspirin 81 mg daily. He has been given a follow-up appoint with Dr. Chicas in 1-2 weeks with EKG and CBC. 2. HYPERTENSION - Under well control. Continue current plan of care. 3. DYSLIPIDEMIA - Continue lipid-lowering agent. Lipid panel in 1 month. Will also add fish oil for hypertriglyceridemia. 4. SLEEP APNEA UNSPECIFIED - Plan for outpatient evaluation with Dr. Wilks. 5. OBESITY - Counseled patient on the importance of exercise and weight loss. 6. ELEVATED LIVER ENZYMES - Patient reports that he has been on both Lipitor and Crestor for quite some time due to confusion with his medications. Recommend that he be discharged home on Crestor as his LDL is 115. Exam (Progress Note) - Constitutional Vitals: Period Temp Pulse Resp BP Sys/Luna Pulse Ox Last 24 Hr 96.7 F-98.9 F 62-76 16-20 117-149/59-86 95-100 Exam: General: Appears well with no apparent distress. Pleasant and cooperative. Appears comfortable. HEENT: PERRL, normocephalic, atraumatic. Mucous membranes moist. No jaundice noted. Conjunctiva moist and clear, sclerae anicteric Neck: No JVD/HJR, no thyromegaly or lymphadenopathy noted. No carotid bruit appreciated Cardiac: Regular rate and rhythm. No murmur rub or gallop. Lungs: Clear to auscultation without accessory muscle use to assist the respiratory pattern. Not requiring oxygen. Abdomen: Soft, bowel sounds normoactive. Nontender and nondistended. No abdominal bruit or thrill noted. No masses noted. Extremities: No clubbing, cyanosis noted. No edema noted. Upper extremity pulses 2+. Lower extremity pulses 2+. Capillary refill less than 3 seconds. Right groin soft without bleeding, hematoma and bruit. Distal pulses 2+. Skin: No unusual lesions or rashes. No skin breakdown appreciated. Neuro: Awake, alert and oriented 3. Moves all extremities well without hemiparesis or paralysis. No essential tremor is appreciated. Result/EKG - Labs CBC & BMP: 01/29/17 00:09 01/31/17 03:37 Lab Results: I have reviewed the past 24 hour labs Labs: Laboratory Results - last 24 hr 01/31/17 03:37 Sodium 139 Potassium 3.6 Chloride 104 Carbon Dioxide 27 Anion Gap 11.6 BUN 7 Creatinine 0.70 GFR Calculation 179 BUN/Creatinine Ratio 10.00 Glucose 108 H Calculated Osmolality 275.5 Calcium 8.2 L Total Creatine Kinase 65 D CK-MB (CK-2) < 1.0 Troponin I 0.196 H D Quality Measures - VTE Contraindication to Mechanical VTE Prophylaxis: Trauma to Legs Specialty Discharge - Follow Up or Referrals Follow up with: dr hipolito [Other] - 1 Week (liver profile recheck) Nuria Wilks MD [Physician] - (Outpatient sleep evaluation) Balbir Rosario MD [Physician] - 1 Week (elevated liver enzymes, really needs his crestor OFFICE WILL CALL PATIENT WITH APPOINTMENT ) Balbir Chicas MD [Physician] - (1-2 WEEKS WITH CBC AND EKG OFFICE WILL CALL PATIENT WITH APPT.) <Felipa Alvarado - Last Filed: 01/31/17 19:57> Exam (Progress Note) - Constitutional Vitals: Period Temp Pulse Resp BP Sys/Luna Pulse Ox Last 24 Hr 97.3 F-98.9 F 62-76 18-20 137-144/81-86 98-100 Result/EKG - Labs CBC & BMP: 01/29/17 00:09 01/31/17 03:37 Labs: Laboratory Results - last 24 hr 01/31/17 01/31/17 03:37 03:37 Sodium 139 Potassium 3.6 Chloride 104 Carbon Dioxide 27 Anion Gap 11.6 BUN 7 Creatinine 0.70 GFR Calculation 179 BUN/Creatinine Ratio 10.00 Glucose 108 H Calculated Osmolality 275.5 Calcium 8.2 L Total Creatine Kinase 65 D CK-MB (CK-2) < 1.0 Troponin I 0.196 H D Hepatitis A IgM Ab Negative Hep Bs Antigen Negative Hep B Core IgM Ab Negative Hepatitis C Antibody Negative
[2017-01-31] MEDS: TICAGRELOR 90 MG TABLET PO SCH (08:54)
[2017-01-31] MEDS: METOPROLOL TARTRATE 25 MG TABLET PO SCH (08:54)
[2017-01-31] MEDS: PANTOPRAZOLE 40 MG TABLET PO SCH (08:54)
[2017-01-31] MEDS ORDERED: ROSUVASTATIN 20 MG TABLET PO SCH (09:00)
[2017-01-31] MEDS ORDERED: MULTIVITAMIN (CENTRUM) TABLET PO SCH (09:00)
[2017-01-31] MEDS ORDERED: OMEGA 3 ACID ETHYL ESTERS 1 GM CAPSULE PO SCH (09:00)
[2017-01-31] MEDS ORDERED: ASPIRIN CHEW 81 MG TABLET PO SCH (09:00)
--- NOTE | 2017-01-31 11:22 | Discharge Summary ---
Hospital Course - Hospital Course Hospital Course: 36-year-old male with a history of hypertension and dyslipidemia presents to emergency room with complaints of chest pain. Patient has a known coronary history already. Serial troponins were mildly positive and increasing. Dr. Chicas was consulted and took him to [facility] yesterday and placed a proximal right coronary artery stent. He was placed on aspirin and Brilinta. His blood pressure is well controlled on metoprolol. Total cholesterol is 183, triglycerides 211, LDL of 115. Patient was on Crestor as an outpatient but his liver enzymes are male mildly elevated with an AST of 116 ALT of 108. It is probably most likely due to fatty liver. Will have to hold his Crestor and Lovaza for now. I will do an abdominal ultrasound today and check for hepatitis. Patient is morbidly obese and I believe it is probably just due to fatty liver but we will have him follow-up with Dr. Rosario. Patient has problems with snoring and needs a sleep evaluation. Christiana Espinoza NP has seen him and recommends an outpatient sleep study. Patient will be discharged home to follow with Dr. Wilks, Dr. Chicas and Dr. Rosario. - Time spent with patient Time with patient DS: Greater than 30 minutes (35 min) Diagnosis - Discharge Diagnosis (1) Unstable angina Status: Resolved (2) DAYANARA (obstructive sleep apnea) Status: Acute (3) Hypertension Status: Chronic (4) Dyslipidemia Status: Chronic Specialty Discharge - Follow Up or Referrals Follow up with: Nuria Wilks MD [Physician] - (Outpatient sleep evaluation) Balbir Chicas MD [Physician] - (1-2 WEEKS WITH CBC AND EKG OFFICE WILL CALL PATIENT WITH APPT.) Discharge Plan - Discharge Data Disposition: Disch To Home/Self Care Condition at Discharge: Stable Discharge Diet: heart healthy, low fat, low cholesterol Activity: resume usual activities as tolerated Hygiene: no restrictions Weight Bearing at Discharge: full weight bearing Driving: no restrictions - Discharge Medications New Ticagrelor [Brilinta] 90 mg PO BID #60 tablet Sertraline [Zoloft] 25 mg PO DAILY #30 tablet Continue Metoprolol Tartrate 25 mg PO DAILY Esomeprazole Magnesium [Nexium] 20 mg PO DAILY Aspirin 81 mg PO DAILY Multivitamin with Minerals [Multivitamins with Minerals] 1 each PO DAILY Discontinued Rosuvastatin Calcium 40 mg PO DAILY Omeprazole 20 mg PO DAILY Amlodipine Besylate [Amlodipine Besylate] 5 mg PO DAILY - Follow Up or Referral Follow Up: Nuria Wilks MD [Physician] - (Outpatient sleep evaluation) Balbir Chicas MD [Physician] - (1-2 WEEKS WITH CBC AND EKG OFFICE WILL CALL PATIENT WITH APPT.) Balbir Rosario MD [Physician] - 1 Week (elevated liver enzymes, really needs his crestor ) dr hipolito [Other] - 1 Week (liver profile recheck) - Forms/Instructions Instructions: Angina (ED), Left Heart Catheterization (DC), Heart Healthy Diet (GEN), Coronary Intravascular Stent Placement (DC) Additional Discharge Instructions: us of abdomen as outpatient for fatty liver Exam - Constitutional Vitals: Period Temp Pulse Resp BP Sys/Luna Pulse Ox Last 24 Hr 96.7 F-98.9 F 62-76 16-20 117-149/59-86 95-100 General appearance: no acute distress, morbidly obese - Head Head exam: Present: normal inspection, normocephalic - Respiratory Respiratory exam: Present: clear to auscultation bilaterally. Absent: rhonchi, wheezes - Cardiovascular Cardiovascular exam: Present: regular rate and rhythm. Absent: systolic murmur - GI/Abdominal GI/Abdominal exam: Present: normal bowel sounds, soft. Absent: tenderness - Extremities Exam Extremities exam: Present: normal inspection, normal capillary refill Discharge Results Labs on day of discharge: Labs from last 24 hours 01/31/17 03:37 Sodium 139 Potassium 3.6 Chloride 104 Carbon Dioxide 27 Anion Gap 11.6 BUN 7 Creatinine 0.70 GFR Calculation 179 BUN/Creatinine Ratio 10.00 Glucose 108 H Calculated Osmolality 275.5 Calcium 8.2 L Total Creatine Kinase 65 D CK-MB (CK-2) < 1.0 Troponin I 0.196 H D DS: Provider Date of admission: 01/29/17 02:22 Primary care physician: . No PCP Attending physician on admission: Oliverio Moon MD Consults: 01/29/17 02:22 Consult to Physician [CONS] Routine Comment: Consulting Provider: Partha Pang Consulting Provider Notified: No When should Consulting Provider be notified: In am 01/30/17 07:25 Consult to Physician [CONS] Routine Comment: Consulting Provider: Nuria Wilks When should Consulting Provider be notified: Now 01/30/17 07:37 Consult to Sleep Center [CONS] Routine Reason for Sleep Center: Sleep Center Physician 01/30/17 11:19 Consult to Cardiac Rehabilitation [CONS] Routine Reason for Cardiac Rehabilitation: Risk Factor Modification Discharging clinician: Katrin Ramos MD
[2017-01-31 11:35] VITALS: BP 137/86
[2017-01-31 13:22] LABS: Hepatitis A Ab IgM Quant 0.15 Index; Hepatitis A Ab IgM Result Negative (Negative); Hepatitis B Core IgM Quant < 0.05 Index; Hepatitis B Core IgM Result Negative (Negative); Hepatitis B Surface Ag Quant 0.11 Index; Hepatitis B Surface Ag Result Negative (Negative); Hepatitis C Virus Ab Quant 0.09 Index; Hepatitis C Virus Ab Result Negative (Negative)
== END 2017-01-31 14:00 | disposition home or self-care (01) | DRG 247 ==
LOC: EDBD → EDUNIT# → N.ED 23:14 → SUATTDRO 01-29 02:22 → N.EDINP 01-29 02:22 → N.TELEN 01-29 03:40
PROVIDERS: ADMIT Internal Medicine; ATTEND Internal Medicine
PROC: CLCCHCL (ICD-10-PCS; 2017-01-30 12:15)

== ENCOUNTER 2018-01-18 19:07 | Observation (INO) ==
[2018-01-18] MEDS ORDERED: ZALEPLON 5 MG CAPSULE PO PRN (19:27)
[2018-01-18] MEDS ORDERED: DOCUSATE SODIUM 100 MG CAPSULE PO PRN (19:27)
[2018-01-18] MEDS ORDERED: MAGNESIUM SULF RIDER 2 GM in PREMIX 1 EACH IV PRN (19:27)
[2018-01-18] MEDS ORDERED: MORPHINE 4 MG/1 ML VIAL IV PRN (19:27)
[2018-01-18] MEDS ORDERED: MAGNESIUM SULF RIDER 4 GM in PREMIX 1 EACH IV PRN (19:27)
[2018-01-18] MEDS ORDERED: ACETAMINOPHEN 325 MG TABLET PO PRN (19:27)
[2018-01-18] MEDS ORDERED: MAGNESIUM HYDROXIDE SUSP 30 ML UDCUP PO PRN (19:36)
[2018-01-18] MEDS ORDERED: diphenhydrAMINE CAP 25 MG CAPSULE PO PRN (19:36)
[2018-01-18] MEDS ORDERED: LORazepam 0.5 MG TABLET PO PRN (19:37)
[2018-01-18] MEDS: ONDANSETRON 4 MG/2 ML VIAL IV PRN (21:41)
[2018-01-18] MEDS: TICAGRELOR 90 MG TABLET PO SCH (22:24)
[2018-01-18] MEDS: METOPROLOL TARTRATE 25 MG TABLET PO SCH (22:24)
[2018-01-18] MEDS: SODIUM CHLORIDE 0.45% 1,000 ML IV SCH (22:24)
[2018-01-18] MEDS: ROSUVASTATIN 20 MG TABLET PO SCH (22:24)
[2018-01-18] MEDS: ENOXAPARIN 40 MG/0.4 ML SYRINGE SUBCUT SCH (22:25)
[2018-01-18] MEDS: NITROGLYCERIN 2% OINT 1 INCH/GM PACK TOP SCH (23:30)
[2018-01-19 05:31] LABS: Basophils % 0.7 % (0.0-0.8); Eosinophils # 0.1 10*3/uL (0.0-0.87); Eosinophils % 2.3 % (0.00-10.9); Hematocrit 27.2 VOL% (42.0-52.0); Hemoglobin 9.4 GM/DL (14.0-18.0); Immature Granulocytes % 0.2 %; Immature Granulocytes Absolute 0.01 #; Lymphocytes # 1.6 10*3/uL (1.4-4.0); Lymphocytes % 37.6 % (21.2-54.2); Mean Corpuscular HGB Conc 34.6 GM/DL (32-36); Mean Corpuscular Hemoglobin 33 PG (27-34); Mean Corpuscular Volume 94.8 FL (87-102); Monocytes # 0.4 10*3/uL (0.11-0.8); Monocytes % 8.2 % (1.7-12.7); Neutrophils # 2.2 10*3/uL (1.4-7.4); Platelet Count 171 T/CUMM (130-400); Red Blood Count 2.87 MC/CUMM (3.8-5.5); Red Cell Distribution Width 14.3 % (9.3-17.3); White Blood Count 4.3 T/CUMM (4-12)
[2018-01-19 06:11] LABS: Albumin 2.7 G/DL (3.4-5.0); Bilirubin,Total 0.5 MG/DL (0.2-1.0); Calcium 7.2 MG/DL (8.5-10.1); Potassium 3.6 MMOL/L (3.5-5.1); Risk Ratio 5.97; Total Protein 5.8 G/DL (6.4-8.3); VLDL CHOLESTEROL 90.2 MG/DL
[2018-01-19] MEDS: SODIUM CHLORIDE 0.45% 1,000 ML IV SCH ×3 (06:23→21:06)
[2018-01-19] MEDS: NITROGLYCERIN 2% OINT 1 INCH/GM PACK TOP SCH ×3 (06:23→18:03)
[2018-01-19] MEDS: POTASSIUM CHLORIDE 20 MEQ TABLET PO PRN (06:23)
[2018-01-19] MEDS: ONDANSETRON 4 MG/2 ML VIAL IV PRN ×2 (06:42→08:52)
[2018-01-19] MEDS ORDERED: POTASSIUM CHLORIDE RIDER 10 MEQ in PREMIX 1 EACH IV PRN (08:40)
[2018-01-19] MEDS ORDERED: MAGNESIUM SULF RIDER 2 GM in PREMIX 1 EACH IV PRN (08:40)
[2018-01-19] MEDS ORDERED: diphenhydrAMINE CAP 25 MG CAPSULE PO ONE (08:40)
[2018-01-19] MEDS ORDERED: DIAZEPAM 5 MG TABLET PO ONE (08:40)
[2018-01-19] MEDS: SERTRALINE 50 MG TABLET PO SCH (08:47)
[2018-01-19] MEDS: PANTOPRAZOLE 20 MG TABLET PO SCH (08:47)
[2018-01-19] MEDS: amLODIPine 5 MG TABLET PO SCH (08:47)
[2018-01-19] MEDS: METOPROLOL TARTRATE 25 MG TABLET PO SCH (08:47)
[2018-01-19] MEDS: TICAGRELOR 90 MG TABLET PO SCH ×2 (08:47→21:05)
[2018-01-19] MEDS: ASPIRIN CHEW 81 MG TABLET PO SCH (08:47)
[2018-01-19] MEDS ORDERED: HYDROmorphone 2 MG/1 ML VIAL ONE (09:10)
[2018-01-19] MEDS ORDERED: MIDAZOLAM 2 MG/2 ML VIAL ONE (09:10)
[2018-01-19] MEDS ORDERED: ADENOSINE 90 MG/30 ML VIAL IV ONE ×2 (09:41→09:51)
[2018-01-19] MEDS: OMEGA 3 ACID ETHYL ESTERS 1 GM CAPSULE PO SCH (17:43)
[2018-01-19] MEDS: ISOSORBIDE MONONITRATE 30 MG TABLET PO SCH (17:43)
[2018-01-19] MEDS: METOPROLOL SUCCINATE XL 50 MG TABLET PO SCH (17:43)
[2018-01-19] MEDS: ROSUVASTATIN 20 MG TABLET PO SCH (21:05)
[2018-01-19] MEDS: ENOXAPARIN 40 MG/0.4 ML SYRINGE SUBCUT SCH (21:06)
[2018-01-20] MEDS: NITROGLYCERIN 2% OINT 1 INCH/GM PACK TOP SCH ×2 (00:06→05:41)
[2018-01-20 04:08] LABS: Basophils % 0.4 % (0.0-0.8); Eosinophils # 0.1 10*3/uL (0.0-0.87); Eosinophils % 1.9 % (0.00-10.9); Hematocrit 25.4 VOL% (42.0-52.0); Immature Granulocytes % 0.4 %; Immature Granulocytes Absolute 0.02 #; Lymphocytes # 1.2 10*3/uL (1.4-4.0); Lymphocytes % 23.7 % (21.2-54.2); Mean Corpuscular HGB Conc 35.4 GM/DL (32-36); Mean Corpuscular Hemoglobin 33 PG (27-34); Mean Corpuscular Volume 93.4 FL (87-102); Mean Platelet Volume 9.2 FL (9.6-12.0); Monocytes # 0.4 10*3/uL (0.11-0.8); Monocytes % 7.2 % (1.7-12.7); Neutrophils # 3.2 10*3/uL (1.4-7.4); Neutrophils % 66.4 % (38.7-73.9); Platelet Count 137 T/CUMM (130-400); Red Blood Count 2.72 MC/CUMM (3.8-5.5); Red Cell Distribution Width 13.7 % (9.3-17.3); White Blood Count 4.9 T/CUMM (4-12)
[2018-01-20 04:29] LABS: Calcium 6.7 MG/DL (8.5-10.1); Osmolality,Calculated 266.2 MOS/KG (273-304); Potassium 2.9 MMOL/L (3.5-5.1)
[2018-01-20] MEDS: POTASSIUM CHLORIDE 20 MEQ TABLET PO PRN ×2 (04:53→06:43)
[2018-01-20] MEDS: SODIUM CHLORIDE 0.45% 1,000 ML IV SCH (05:26)
[2018-01-20 08:14] VITALS: BP 140/84
[2018-01-20] MEDS ORDERED: POTASSIUM CHLORIDE 20 MEQ TABLET PO ONE (08:41)
[2018-01-20] MEDS: ASPIRIN CHEW 81 MG TABLET PO SCH (08:54)
[2018-01-20] MEDS: ISOSORBIDE MONONITRATE 30 MG TABLET PO SCH (08:54)
[2018-01-20] MEDS: OMEGA 3 ACID ETHYL ESTERS 1 GM CAPSULE PO SCH (08:54)
[2018-01-20] MEDS: PANTOPRAZOLE 20 MG TABLET PO SCH (08:55)
[2018-01-20] MEDS: amLODIPine 5 MG TABLET PO SCH (08:55)
[2018-01-20] MEDS: METOPROLOL SUCCINATE XL 50 MG TABLET PO SCH (08:56)
[2018-01-20] MEDS: SERTRALINE 50 MG TABLET PO SCH (08:58)
== END 2018-01-20 11:27 | disposition home or self-care (01) ==
LOC: N.TELES 21:01 → INTOOBSV 21:01
PROVIDERS: ADMIT Internal Medicine Cardiovascular Disease; ATTEND Internal Medicine Cardiovascular Disease
PROC: CLCCHCL (ICD-10-PCS; 2018-01-19 09:45)

== ENCOUNTER 2018-01-29 11:21 | Inpatient (IN) ==
[2018-01-29] MEDS ORDERED: ONDANSETRON 4 MG/2 ML VIAL IV STA ×2 (11:43→15:40)
[2018-01-29 11:57] LABS: Basophils % 0.5 % (0.0-0.8); Eosinophils % 0.5 % (0.00-10.9); Hematocrit 32.5 VOL% (42.0-52.0); Hemoglobin 11.8 GM/DL (14.0-18.0); Immature Granulocytes % 0.5 %; Immature Granulocytes Absolute 0.03 #; Lymphocytes # 0.7 10*3/uL (1.4-4.0); Lymphocytes % 11.7 % (21.2-54.2); Mean Corpuscular HGB Conc 36.3 GM/DL (32-36); Mean Corpuscular Hemoglobin 34 PG (27-34); Mean Corpuscular Volume 93.7 FL (87-102); Mean Platelet Volume 8.5 FL (9.6-12.0); Monocytes # 0.4 10*3/uL (0.11-0.8); Monocytes % 6.3 % (1.7-12.7); Neutrophils # 4.8 10*3/uL (1.4-7.4); Neutrophils % 80.5 % (38.7-73.9); Platelet Count 161 T/CUMM (130-400); Red Blood Count 3.47 MC/CUMM (3.8-5.5); Red Cell Distribution Width 13.9 % (9.3-17.3)
[2018-01-29 12:41] LABS: Albumin 4.1 G/DL (3.4-5.0); Bilirubin,Total 0.9 MG/DL (0.2-1.0); Calcium 8.1 MG/DL (8.5-10.1); Osmolality,Calculated 282.4 MOS/KG (273-304); Potassium 3.9 MMOL/L (3.5-5.1)
[2018-01-29 13:06] LABS: Apearance,Urine CLEAR (Clear); Bacteria,Urine Occasional /HPF (Few); Bilirubin,Urine Negative (Negative); Blood, Urine Moderate mg/dL (Negative); Glucose,Urine (UA) Negative (Negative); Ketones,Urine Negative (Negative); Mucus,Urine Occasional /LPF (Occasional); Nitrite,Urine Negative (Negative); Protein,Urine 100 MG/DL; RBC,Urine 1 /HPF (0-4); Squamous Epithelial Cell,Urine Occasional /HPF (0-10); Urine Color Yellow (Yellow); Urine Specific Gravity 1.018 (1.001-1.035); Urine Urobilinogen < 2.0 EU/DL (0.2-1.0); WBC,Urine 1 /HPF (0-6)
[2018-01-29] MEDS ORDERED: HYDROmorphone 2 MG/1 ML VIAL ONE (15:34)
[2018-01-29] MEDS ORDERED: HYDROmorphone 2 MG/1 ML VIAL IV STA (15:40)
[2018-01-29] MEDS ORDERED: diphenhydrAMINE CAP 25 MG CAPSULE PO PRN (15:54)
[2018-01-29] MEDS ORDERED: ZALEPLON 5 MG CAPSULE PO PRN (15:54)
[2018-01-29] MEDS ORDERED: BISACODYL 5 MG TABLET PO PRN (15:54)
[2018-01-29] MEDS ORDERED: DOCUSATE SODIUM 100 MG CAPSULE PO PRN (15:54)
[2018-01-29] MEDS ORDERED: MAGNESIUM SULF RIDER 4 GM in PREMIX 1 EACH IV PRN (15:54)
[2018-01-29] MEDS ORDERED: ONDANSETRON 4 MG/2 ML VIAL IV PRN (15:54)
[2018-01-29] MEDS ORDERED: MAGNESIUM SULF RIDER 2 GM in PREMIX 1 EACH IV PRN (15:54)
[2018-01-29] MEDS: ENOXAPARIN 40 MG/0.4 ML SYRINGE SUBCUT SCH (16:47)
[2018-01-29] MEDS ORDERED: HYDROmorphone 2 MG/1 ML VIAL IV PRN (17:01)
[2018-01-29] MEDS: SODIUM CHLORIDE 0.9% 1,000 ML IV SCH (17:23)
[2018-01-29] MEDS: hydrALAZINE 20 MG/1 ML VIAL IV PRN ×2 (17:27→23:47)
[2018-01-29] MEDS: PROMETHAZINE INJ 25 MG in SODIUM CHLORIDE 0.9% 50 ML IV PRN (17:45)
[2018-01-29] MEDS: ROSUVASTATIN 20 MG TABLET PO SCH (20:42)
[2018-01-30] MEDS: ACETAMINOPHEN 325 MG TABLET PO PRN ×2 (01:05→07:53)
[2018-01-30] MEDS: SODIUM CHLORIDE 0.9% 1,000 ML IV SCH ×3 (03:23→23:30)
[2018-01-30] MEDS: PROMETHAZINE INJ 25 MG in SODIUM CHLORIDE 0.9% 50 ML IV PRN (04:59)
[2018-01-30 05:00] LABS: Basophils % 0.4 % (0.0-0.8); Eosinophils % 0.8 % (0.00-10.9); Hematocrit 28.3 VOL% (42.0-52.0); Hemoglobin 10.2 GM/DL (14.0-18.0); Immature Granulocytes % 0.2 %; Immature Granulocytes Absolute 0.01 #; Lymphocytes # 1.1 10*3/uL (1.4-4.0); Lymphocytes % 22.5 % (21.2-54.2); Mean Corpuscular Hemoglobin 33 PG (27-34); Mean Corpuscular Volume 92.2 FL (87-102); Mean Platelet Volume 9.1 FL (9.6-12.0); Monocytes # 0.4 10*3/uL (0.11-0.8); Monocytes % 8.1 % (1.7-12.7); Neutrophils # 3.4 10*3/uL (1.4-7.4); Platelet Count 131 T/CUMM (130-400); Red Blood Count 3.07 MC/CUMM (3.8-5.5); Red Cell Distribution Width 14.2 % (9.3-17.3); White Blood Count 4.9 T/CUMM (4-12)
[2018-01-30 05:27] LABS: Calcium 7.8 MG/DL (8.5-10.1); Osmolality,Calculated 274.7 MOS/KG (273-304)
[2018-01-30 05:29] LABS: Albumin 3.4 G/DL (3.4-5.0); Bilirubin,Direct 0.28 MG/DL (0.0-0.20); Bilirubin,Indirect 0.8 MG/DL (0.0-1.0); Bilirubin,Total 1.1 MG/DL (0.2-1.0); Total Protein 7.2 G/DL (6.4-8.3)
[2018-01-30] MEDS: POTASSIUM CHLORIDE RIDER 10 MEQ in PREMIX 1 EACH IV SCH ×4 (07:54→17:15)
[2018-01-30] MEDS ORDERED: PANTOPRAZOLE 40 MG TABLET PO SCH (09:00)
[2018-01-30 11:27] LABS: Calcium 8.5 MG/DL (8.5-10.1); Osmolality,Calculated 273.8 MOS/KG (273-304); Potassium 3.3 MMOL/L (3.5-5.1)
[2018-01-30] MEDS: ASPIRIN CHEW 81 MG TABLET PO SCH (12:11)
[2018-01-30] MEDS: OMEGA 3 ACID ETHYL ESTERS 1 GM CAPSULE PO SCH (12:12)
[2018-01-30] MEDS: ISOSORBIDE MONONITRATE 30 MG TABLET PO SCH (12:12)
[2018-01-30] MEDS: PANTOPRAZOLE 40 MG VIAL IV SCH (12:12)
[2018-01-30] MEDS: amLODIPine 5 MG TABLET PO SCH (12:12)
[2018-01-30] MEDS: METOPROLOL SUCCINATE XL 50 MG TABLET PO SCH (12:13)
[2018-01-30] MEDS: SERTRALINE 50 MG TABLET PO SCH (12:13)
[2018-01-30] MEDS: ENOXAPARIN 40 MG/0.4 ML SYRINGE SUBCUT SCH (17:03)
[2018-01-30] MEDS: ROSUVASTATIN 20 MG TABLET PO SCH (21:29)
[2018-01-31 06:19] LABS: Basophils % 0.5 % (0.0-0.8); Eosinophils # 0.1 10*3/uL (0.0-0.87); Eosinophils % 1.6 % (0.00-10.9); Hematocrit 27.8 VOL% (42.0-52.0); Hemoglobin 9.7 GM/DL (14.0-18.0); Immature Granulocytes % 0.3 %; Immature Granulocytes Absolute 0.01 #; Lymphocytes % 25.9 % (21.2-54.2); Mean Corpuscular HGB Conc 34.9 GM/DL (32-36); Mean Corpuscular Hemoglobin 33 PG (27-34); Mean Corpuscular Volume 93.6 FL (87-102); Mean Platelet Volume 9.2 FL (9.6-12.0); Monocytes # 0.4 10*3/uL (0.11-0.8); Monocytes % 9.1 % (1.7-12.7); Neutrophils # 2.4 10*3/uL (1.4-7.4); Neutrophils % 62.6 % (38.7-73.9); Platelet Count 106 T/CUMM (130-400); Red Blood Count 2.97 MC/CUMM (3.8-5.5); Red Cell Distribution Width 14.4 % (9.3-17.3); White Blood Count 3.9 T/CUMM (4-12)
[2018-01-31] MEDS ORDERED: cefOXitin 2,000 MG in SYRINGE 1 EACH IV ONE (06:30)
[2018-01-31 06:47] LABS: Calcium 8.1 MG/DL (8.5-10.1); Osmolality,Calculated 279.3 MOS/KG (273-304); Potassium 3.1 MMOL/L (3.5-5.1)
[2018-01-31] MEDS ORDERED: LIDOCAINE 1%/EPI INJ 20 ML VIAL ONE (07:22)
[2018-01-31] MEDS ORDERED: TISSUE ADHESIVE 1 EACH APPLICATOR TOP ONE (07:22)
[2018-01-31] MEDS ORDERED: BUPIVACAINE 0.25% /EPI 10 ML VIAL ONE (07:22)
[2018-01-31] MEDS ORDERED: LIDOCAINE 1% 5 ML VIAL ONE (08:16)
[2018-01-31] MEDS ORDERED: ETOMIDATE 20 MG/10 ML VIAL IV ONE (08:16)
[2018-01-31] MEDS ORDERED: PROPOFOL 200 MG/20 ML VIAL IV ONE ×2 (08:16→09:21)
[2018-01-31] MEDS ORDERED: MIDAZOLAM 2 MG/2 ML VIAL ONE (09:21)
[2018-01-31] MEDS ORDERED: LABETALOL 20 MG/4 ML SYRINGE IV ONE (09:21)
[2018-01-31] MEDS ORDERED: SEVOFLURANE 1 UNIT/15 MINUTE INH ONE (09:21)
[2018-01-31] MEDS ORDERED: CALCIUM CHLORIDE 1,000 MG/10 ML VIAL IV ONE (09:21)
[2018-01-31] MEDS ORDERED: fentaNYL 100 MCG/2 ML VIAL ONE (09:22)
[2018-01-31] MEDS ORDERED: ACETAMINOPHEN 1,000 MG/100 ML VIAL IV ONE (09:22)
[2018-01-31] MEDS ORDERED: ONDANSETRON 4 MG/2 ML VIAL ONE ×2 (09:22→09:37)
[2018-01-31] MEDS ORDERED: PHENYLEPHRINE 1 MG/10 ML SYRINGE IV ONE (09:22)
[2018-01-31] MEDS ORDERED: KETOROLAC 30 MG/1 ML VIAL ONE (09:22)
[2018-01-31] MEDS ORDERED: GLYCOPYRROLATE 0.4 MG/2 ML VIAL ONE (09:22)
[2018-01-31] MEDS ORDERED: ROCURONIUM 100 MG/10 ML VIAL IV ONE (09:22)
[2018-01-31] MEDS ORDERED: NEOSTIGMINE 10 MG/10 ML VIAL ONE (09:22)
[2018-01-31] MEDS ORDERED: LACTATED RINGERS 1,000 ML IV ONE (09:22)
[2018-01-31] MEDS ORDERED: DEXAMETHASONE 10 MG/1 ML VIAL ONE (09:22)
[2018-01-31] MEDS ORDERED: LABETALOL 100 MG/20 ML VIAL IV ONE (09:28)
[2018-01-31] MEDS ORDERED: MEPERIDINE 25 MG/1 ML VIAL ONE (09:37)
[2018-01-31] MEDS ORDERED: PROMETHAZINE 25 MG/1 ML VIAL ONE (09:38)
[2018-01-31] MEDS ORDERED: MEPERIDINE 25 MG/1 ML VIAL IV PRN (09:53)
[2018-01-31] MEDS ORDERED: MORPHINE 10 MG/1 ML VIAL IV PRN (09:53)
[2018-01-31] MEDS ORDERED: diphenhydrAMINE 50 MG/1 ML VIAL IV PRN (09:53)
[2018-01-31] MEDS ORDERED: PROMETHAZINE INJ 25 MG in SODIUM CHLORIDE 0.9% 50 ML IV PRN (09:53)
[2018-01-31] MEDS ORDERED: ONDANSETRON 4 MG/2 ML VIAL IV PRN (09:53)
[2018-01-31] MEDS: ISOSORBIDE MONONITRATE 30 MG TABLET PO SCH (17:49)
[2018-01-31] MEDS: METOPROLOL SUCCINATE XL 50 MG TABLET PO SCH (17:49)
[2018-01-31] MEDS: ASPIRIN CHEW 81 MG TABLET PO SCH (17:49)
[2018-01-31] MEDS: amLODIPine 5 MG TABLET PO SCH (17:49)
[2018-01-31] MEDS: PANTOPRAZOLE 40 MG VIAL IV SCH (17:50)
[2018-01-31] MEDS: SERTRALINE 50 MG TABLET PO SCH (17:50)
[2018-01-31] MEDS: OMEGA 3 ACID ETHYL ESTERS 1 GM CAPSULE PO SCH (17:50)
[2018-01-31] MEDS: SODIUM CHLORIDE 0.9% 1,000 ML IV SCH ×2 (17:55→22:39)
[2018-01-31] MEDS: ENOXAPARIN 40 MG/0.4 ML SYRINGE SUBCUT SCH (17:56)
[2018-01-31] MEDS: ROSUVASTATIN 20 MG TABLET PO SCH (21:46)
[2018-02-01 06:36] LABS: Basophils % 0.2 % (0.0-0.8); Hematocrit 24.1 VOL% (42.0-52.0); Hemoglobin 8.5 GM/DL (14.0-18.0); Immature Granulocytes Absolute 0.06 #; Lymphocytes # 0.5 10*3/uL (1.4-4.0); Lymphocytes % 8.3 % (21.2-54.2); Mean Corpuscular HGB Conc 35.3 GM/DL (32-36); Mean Corpuscular Hemoglobin 34 PG (27-34); Mean Corpuscular Volume 95.6 FL (87-102); Mean Platelet Volume 9.6 FL (9.6-12.0); Monocytes # 0.5 10*3/uL (0.11-0.8); Monocytes % 8.7 % (1.7-12.7); Neutrophils # 5.1 10*3/uL (1.4-7.4); Neutrophils % 81.8 % (38.7-73.9); Platelet Count 117 T/CUMM (130-400); Red Blood Count 2.52 MC/CUMM (3.8-5.5); Red Cell Distribution Width 14.4 % (9.3-17.3); White Blood Count 6.2 T/CUMM (4-12)
[2018-02-01 07:07] LABS: Calcium 8.2 MG/DL (8.5-10.1); Osmolality,Calculated 275.5 MOS/KG (273-304); Potassium 3.4 MMOL/L (3.5-5.1)
[2018-02-01] MEDS: POTASSIUM CHLORIDE 20 MEQ TABLET PO PRN ×3 (08:50→12:34)
[2018-02-01] MEDS: ISOSORBIDE MONONITRATE 30 MG TABLET PO SCH (08:51)
[2018-02-01] MEDS: SERTRALINE 50 MG TABLET PO SCH (08:51)
[2018-02-01] MEDS: amLODIPine 5 MG TABLET PO SCH (08:52)
[2018-02-01] MEDS: METOPROLOL SUCCINATE XL 50 MG TABLET PO SCH (08:52)
[2018-02-01] MEDS: ASPIRIN CHEW 81 MG TABLET PO SCH (08:53)
[2018-02-01] MEDS: PANTOPRAZOLE 40 MG VIAL IV SCH (08:55)
[2018-02-01] MEDS: OMEGA 3 ACID ETHYL ESTERS 1 GM CAPSULE PO SCH (09:34)
[2018-02-01] MEDS: SODIUM CHLORIDE 0.9% 1,000 ML IV SCH ×2 (12:36→17:39)
[2018-02-01 16:34] VITALS: BP 162/82
[2018-02-01] MEDS: ENOXAPARIN 40 MG/0.4 ML SYRINGE SUBCUT SCH (17:40)
== END 2018-02-01 17:50 | disposition home or self-care (01) | DRG 419 ==
LOC: N.ED 11:21 → N.EDINP 15:54 → N.3E 16:42
PROVIDERS: ADMIT Internal Medicine Cardiovascular Disease; ATTEND Internal Medicine Cardiovascular Disease
PROC: LAPCHOL (2018-01-31 08:10)

== ENCOUNTER 2020-09-05 11:16 | Inpatient (IN) ==
[2020-09-05] MEDS ORDERED: GLUCAGON 1 MG VIAL IM PRN (14:17)
[2020-09-05] MEDS ORDERED: DEXTROSE 50% 25 GM/50 ML VIAL IV PRN (14:17)
[2020-09-05] MEDS ORDERED: ONDANSETRON 4 MG/2 ML VIAL IV PRN (14:17)
[2020-09-05 15:03] LABS: Basophils % 0.2 % (0.0-0.8); Eosinophils % 0.2 % (0.00-10.9); Hematocrit 24.8 VOL% (42.0-52.0); Hemoglobin 8.3 GM/DL (14.0-18.0); Immature Granulocytes % 0.4 %; Immature Granulocytes Absolute 0.02 #; Lymphocytes # 0.4 10*3/uL (1.4-4.0); Lymphocytes % 6.3 % (21.2-54.2); Mean Corpuscular HGB Conc 33.5 GM/DL (32-36); Mean Corpuscular Volume 95.8 FL (87-102); Mean Platelet Volume 9.3 FL (9.6-12.0); Monocytes % 8.6 % (1.7-12.7); Neutrophils % 84.3 % (38.7-73.9); Platelet Count 134 T/CUMM (130-400); Red Blood Count 2.59 MC/CUMM (3.8-5.5); Red Cell Distribution Width 12.5 % (9.3-17.3); White Blood Count 5.6 T/CUMM (4-12)
[2020-09-05 15:15] LABS: Albumin 3.3 G/DL (3.4-5.0); Bilirubin,Total 0.7 MG/DL (0.2-1.0); Calcium 8.6 MG/DL (8.5-10.1); Total Protein 7.2 G/DL (5.0-7.5)
[2020-09-05] MEDS ORDERED: VANCOMYCIN INJ 750 MG in SODIUM CHLORIDE 0.9% 250 ML IV ONE (15:46)
[2020-09-05] MEDS: ACETAMINOPHEN 325 MG TABLET PO PRN ×2 (15:59→20:43)
[2020-09-05] MEDS: PIPERACILLIN/TAZOBACTAM 3,375 MG in SODIUM CHLORIDE 0.9% 100 ML IV SCH ×2 (16:00→23:10)
[2020-09-05] MEDS: VANCOMYCIN INJ 1,250 MG in SODIUM CHLORIDE 0.9% 250 ML IV SCH (18:02)
[2020-09-06] MEDS: ACETAMINOPHEN 325 MG TABLET PO PRN ×5 (02:00→18:12)
[2020-09-06] MEDS: VANCOMYCIN INJ 1,250 MG in SODIUM CHLORIDE 0.9% 250 ML IV SCH ×2 (04:54→18:12)
[2020-09-06 05:04] LABS: Basophils % 0.2 % (0.0-0.8); Eosinophils % 0.2 % (0.00-10.9); Hematocrit 24.5 VOL% (42.0-52.0); Hemoglobin 8.1 GM/DL (14.0-18.0); Immature Granulocytes % 0.5 %; Immature Granulocytes Absolute 0.03 #; Lymphocytes # 0.3 10*3/uL (1.4-4.0); Lymphocytes % 5.2 % (21.2-54.2); Mean Corpuscular HGB Conc 33.1 GM/DL (32-36); Mean Corpuscular Volume 96.8 FL (87-102); Mean Platelet Volume 9.6 FL (9.6-12.0); Neutrophils % 84.9 % (38.7-73.9); Platelet Count 132 T/CUMM (130-400); Red Blood Count 2.53 MC/CUMM (3.8-5.5); Red Cell Distribution Width 12.3 % (9.3-17.3)
[2020-09-06 05:27] LABS: Calcium 8.3 MG/DL (8.5-10.1); Osmolality,Calculated 272.8 MOS/KG (273-304); Potassium 3.7 MMOL/L (3.5-5.1)
[2020-09-06] MEDS: PIPERACILLIN/TAZOBACTAM 3,375 MG in SODIUM CHLORIDE 0.9% 100 ML IV SCH ×2 (06:16→14:20)
[2020-09-06 06:27] LABS: Albumin 2.9 G/DL (3.4-5.0); Bilirubin,Direct 0.24 MG/DL (0.0-0.20); Bilirubin,Indirect 0.6 MG/DL (0.0-1.0); Bilirubin,Total 0.8 MG/DL (0.2-1.0); Total Protein 6.9 G/DL (5.0-7.5)
[2020-09-06] MEDS ORDERED: KETOROLAC 30 MG/1 ML VIAL IV ONE (07:30)
[2020-09-06] MEDS ORDERED: SODIUM CHLORIDE 0.9% 500 ML IV ONE (08:53)
[2020-09-06] MEDS ORDERED: SODIUM CHLORIDE 0.9% 250 ML IV ONE (12:16)
[2020-09-06] MEDS ORDERED: NITROGLYCERIN SL 0.4 MG TABLET SL PRN (13:23)
[2020-09-06] MEDS ORDERED: METOPROLOL TARTRATE 25 MG TABLET PO SCH (13:30)
[2020-09-06] MEDS ORDERED: ENOXAPARIN 40 MG/0.4 ML SYRINGE SUBCUT SCH (13:30)
[2020-09-06] MEDS ORDERED: hydrALAZINE 20 MG/1 ML VIAL IV PRN (13:40)
[2020-09-06] MEDS: IRON SUCROSE 200 MG in SODIUM CHLORIDE 0.9% 100 ML IV SCH (13:44)
[2020-09-06] MEDS: ASPIRIN EC 81 MG TABLET PO SCH (14:27)
[2020-09-06] MEDS: CLOPIDOGREL 75 MG TABLET PO SCH (14:27)
[2020-09-06 15:54] LABS: Basophils % 0.3 % (0.0-0.8); Eosinophils % 0.3 % (0.00-10.9); Hematocrit 22.6 VOL% (42.0-52.0); Hemoglobin 7.4 GM/DL (14.0-18.0); Immature Granulocytes % 0.5 %; Immature Granulocytes Absolute 0.02 #; Lymphocytes # 0.5 10*3/uL (1.4-4.0); Lymphocytes % 12.1 % (21.2-54.2); Mean Corpuscular HGB Conc 32.7 GM/DL (32-36); Mean Platelet Volume 9.5 FL (9.6-12.0); Neutrophils % 86.8 % (38.7-73.9); Platelet Count 109 T/CUMM (130-400); Red Blood Count 2.33 MC/CUMM (3.8-5.5); Red Cell Distribution Width 12.4 % (9.3-17.3); White Blood Count 3.8 T/CUMM (4-12)
[2020-09-06 16:22] LABS: Potassium 3.9 MMOL/L (3.5-5.1)
[2020-09-06 16:45] LABS: Lymphocytes 6 % (20-55); Segmented Neutrophils 90 % (50-85); Total Cells Counted 100
[2020-09-06] MEDS: SERTRALINE 50 MG TABLET PO SCH (21:26)
[2020-09-06] MEDS: ROSUVASTATIN 20 MG TABLET PO SCH (21:26)
[2020-09-06] MEDS ORDERED: IBUPROFEN 400 MG TABLET PO PRN (23:41)
[2020-09-07] MEDS: PIPERACILLIN/TAZOBACTAM 3,375 MG in SODIUM CHLORIDE 0.9% 100 ML IV SCH ×2 (00:02→07:16)
[2020-09-07] MEDS: ACETAMINOPHEN 325 MG TABLET PO PRN (01:14)
[2020-09-07] MEDS: VANCOMYCIN INJ 1,250 MG in SODIUM CHLORIDE 0.9% 250 ML IV SCH (04:52)
[2020-09-07 04:59] LABS: Basophils % 0.3 % (0.0-0.8); Hematocrit 22.5 VOL% (42.0-52.0); Hemoglobin 7.4 GM/DL (14.0-18.0); Immature Granulocytes % 0.3 %; Immature Granulocytes Absolute 0.01 #; Lymphocytes # 0.4 10*3/uL (1.4-4.0); Lymphocytes % 12.3 % (21.2-54.2); Mean Corpuscular HGB Conc 32.9 GM/DL (32-36); Mean Corpuscular Volume 96.2 FL (87-102); Mean Platelet Volume 9.8 FL (9.6-12.0); Neutrophils % 75.1 % (38.7-73.9); Platelet Count 104 T/CUMM (130-400); Red Blood Count 2.34 MC/CUMM (3.8-5.5); Red Cell Distribution Width 12.6 % (9.3-17.3); White Blood Count 3.1 T/CUMM (4-12)
[2020-09-07 05:18] LABS: Hypochromasia 1+; Microcytosis 1+; Platelet Estimate Decreased
[2020-09-07 05:39] LABS: Calcium 8.2 MG/DL (8.5-10.1); Osmolality,Calculated 269.1 MOS/KG (273-304); Potassium 3.5 MMOL/L (3.5-5.1)
[2020-09-07] MEDS ORDERED: MAGNESIUM SULF RIDER 4 GM in PREMIX 1 EACH IV PRN (08:00)
[2020-09-07] MEDS ORDERED: MAGNESIUM SULF RIDER 2 GM in PREMIX 1 EACH IV PRN (08:00)
[2020-09-07] MEDS ORDERED: SODIUM BICARBONATE 650 MG TABLET PO SCH (09:00)
[2020-09-07] MEDS ORDERED: IRON SUCROSE 200 MG in SODIUM CHLORIDE 0.9% 100 ML IV SCH (09:00)
[2020-09-07] MEDS ORDERED: amLODIPine 5 MG TABLET PO SCH (09:00)
[2020-09-07] MEDS: SODIUM BICARBONATE 650 MG TABLET PO SCH ×3 (09:40→21:46)
[2020-09-07] MEDS: CLOPIDOGREL 75 MG TABLET PO SCH (09:40)
[2020-09-07] MEDS: ASPIRIN EC 81 MG TABLET PO SCH (09:40)
[2020-09-07] MEDS: IRON SUCROSE 200 MG in SODIUM CHLORIDE 0.9% 100 ML IV SCH (10:55)
[2020-09-07] MEDS: ceFAZolin 2,000 MG in PREMIX 1 EACH IV SCH (16:15)
[2020-09-07] MEDS ORDERED: PIPERACILLIN/TAZOBACTAM 3,375 MG in SODIUM CHLORIDE 0.9% 100 ML IV SCH (21:00)
[2020-09-07] MEDS: SERTRALINE 50 MG TABLET PO SCH (21:46)
[2020-09-07] MEDS: ROSUVASTATIN 20 MG TABLET PO SCH (21:46)
[2020-09-08] MEDS: ceFAZolin 2,000 MG in PREMIX 1 EACH IV SCH ×3 (01:35→16:14)
[2020-09-08 07:42] LABS: Basophils % 0.4 % (0.0-0.8); Eosinophils # 0.1 10*3/uL (0.0-0.87); Eosinophils % 3.4 % (0.00-10.9); Hematocrit 22.1 VOL% (42.0-52.0); Hemoglobin 7.4 GM/DL (14.0-18.0); Immature Granulocytes % 0.4 %; Immature Granulocytes Absolute 0.01 #; Lymphocytes # 0.4 10*3/uL (1.4-4.0); Lymphocytes % 15.3 % (21.2-54.2); Mean Corpuscular HGB Conc 33.5 GM/DL (32-36); Mean Corpuscular Volume 93.6 FL (87-102); Mean Platelet Volume 9.7 FL (9.6-12.0); Monocytes % 17.6 % (1.7-12.7); Neutrophils % 62.9 % (38.7-73.9); Platelet Count 128 T/CUMM (130-400); Red Blood Count 2.36 MC/CUMM (3.8-5.5); Red Cell Distribution Width 12.3 % (9.3-17.3); White Blood Count 2.6 T/CUMM (4-12)
[2020-09-08 08:02] LABS: Calcium 8.3 MG/DL (8.5-10.1); Osmolality,Calculated 277.4 MOS/KG (273-304); Potassium 3.6 MMOL/L (3.5-5.1)
[2020-09-08 08:07] LABS: Eosinophils 3 % (0-10); Lymphocytes 15 % (20-55); Segmented Neutrophils 68 % (50-85); Total Cells Counted 100
[2020-09-08 08:08] LABS: Hypochromasia 1+; Microcytosis 1+; Ovalocytes Slight; Platelet Estimate Normal
[2020-09-08] MEDS: SODIUM BICARBONATE 650 MG TABLET PO SCH ×3 (08:57→21:22)
[2020-09-08] MEDS: ENOXAPARIN 30 MG/0.3 ML SYRINGE SUBCUT SCH (08:57)
[2020-09-08] MEDS: ASPIRIN EC 81 MG TABLET PO SCH (08:58)
[2020-09-08] MEDS: CLOPIDOGREL 75 MG TABLET PO SCH (08:58)
[2020-09-08] MEDS: IRON SUCROSE 200 MG in SODIUM CHLORIDE 0.9% 100 ML IV SCH (09:58)
[2020-09-08] MEDS: ROSUVASTATIN 20 MG TABLET PO SCH (21:22)
[2020-09-08] MEDS: SERTRALINE 50 MG TABLET PO SCH (21:22)
[2020-09-09] MEDS: ceFAZolin 2,000 MG in PREMIX 1 EACH IV SCH ×3 (00:41→17:24)
[2020-09-09 05:21] LABS: Basophils % 0.4 % (0.0-0.8); Eosinophils # 0.1 10*3/uL (0.0-0.87); Eosinophils % 2.9 % (0.00-10.9); Hematocrit 22.6 VOL% (42.0-52.0); Hemoglobin 7.7 GM/DL (14.0-18.0); Immature Granulocytes % 0.4 %; Immature Granulocytes Absolute 0.01 #; Lymphocytes # 0.6 10*3/uL (1.4-4.0); Lymphocytes % 22.3 % (21.2-54.2); Mean Corpuscular HGB Conc 34.1 GM/DL (32-36); Mean Corpuscular Volume 93.4 FL (87-102); Mean Platelet Volume 9.9 FL (9.6-12.0); Monocytes % 14.2 % (1.7-12.7); Neutrophils % 59.8 % (38.7-73.9); Platelet Count 137 T/CUMM (130-400); Red Blood Count 2.42 MC/CUMM (3.8-5.5); Red Cell Distribution Width 12.3 % (9.3-17.3); White Blood Count 2.7 T/CUMM (4-12)
[2020-09-09 05:42] LABS: Hypochromasia 2+; Microcytosis 1+; Ovalocytes Slight; Platelet Estimate Adequate
[2020-09-09 05:43] LABS: Calcium 9.1 MG/DL (8.5-10.1); Osmolality,Calculated 273.7 MOS/KG (273-304); Potassium 3.5 MMOL/L (3.5-5.1)
[2020-09-09] MEDS ORDERED: SODIUM CHLORIDE 0.9% 1,000 ML IV SCH (07:30)
[2020-09-09] MEDS: SODIUM BICARBONATE 650 MG TABLET PO SCH ×3 (09:21→20:32)
[2020-09-09] MEDS: IRON SUCROSE 200 MG in SODIUM CHLORIDE 0.9% 100 ML IV SCH (09:21)
[2020-09-09] MEDS ORDERED: propofoL 200 MG/20 ML VIAL IV ONE ×3 (12:04→13:48)
[2020-09-09] MEDS ORDERED: MIDAZOLAM 2 MG/2 ML VIAL ONE (12:04)
[2020-09-09] MEDS: ENOXAPARIN 30 MG/0.3 ML SYRINGE SUBCUT SCH (13:52)
[2020-09-09] MEDS: ASPIRIN EC 81 MG TABLET PO SCH (15:54)
[2020-09-09] MEDS: CLOPIDOGREL 75 MG TABLET PO SCH (15:54)
[2020-09-09] MEDS: ROSUVASTATIN 20 MG TABLET PO SCH (20:32)
[2020-09-09] MEDS: SERTRALINE 50 MG TABLET PO SCH (21:38)
[2020-09-09] MEDS: ACETAMINOPHEN 325 MG TABLET PO PRN (21:38)
[2020-09-10] MEDS: ceFAZolin 2,000 MG in PREMIX 1 EACH IV SCH ×3 (00:23→16:11)
[2020-09-10 05:39] LABS: Basophils % 0.5 % (0.0-0.8); Eosinophils # 0.1 10*3/uL (0.0-0.87); Eosinophils % 3.8 % (0.00-10.9); Hematocrit 25.7 VOL% (42.0-52.0); Hemoglobin 8.5 GM/DL (14.0-18.0); Immature Granulocytes % 0.3 %; Immature Granulocytes Absolute 0.01 #; Mean Corpuscular HGB Conc 33.1 GM/DL (32-36); Mean Corpuscular Volume 96.3 FL (87-102); Mean Platelet Volume 9.5 FL (9.6-12.0); Monocytes % 13.3 % (1.7-12.7); Neutrophils % 56.1 % (38.7-73.9); Platelet Count 198 T/CUMM (130-400); Red Blood Count 2.67 MC/CUMM (3.8-5.5); Red Cell Distribution Width 12.4 % (9.3-17.3); White Blood Count 3.7 T/CUMM (4-12)
[2020-09-10 05:59] LABS: Calcium 9.3 MG/DL (8.5-10.1); Osmolality,Calculated 276.4 MOS/KG (273-304); Potassium 3.6 MMOL/L (3.5-5.1)
[2020-09-10 06:05] LABS: Eosinophils 6 % (0-10); Hypochromasia 1+; Lymphocytes 33 % (20-55); Microcytosis 1+; Platelet Estimate Adequate; Segmented Neutrophils 51 % (50-85); Total Cells Counted 100
[2020-09-10] MEDS: IRON SUCROSE 200 MG in SODIUM CHLORIDE 0.9% 100 ML IV SCH (09:02)
[2020-09-10] MEDS: ASPIRIN EC 81 MG TABLET PO SCH (09:02)
[2020-09-10] MEDS: SODIUM BICARBONATE 650 MG TABLET PO SCH ×3 (09:02→20:33)
[2020-09-10] MEDS: CLOPIDOGREL 75 MG TABLET PO SCH (09:02)
[2020-09-10] MEDS: ENOXAPARIN 30 MG/0.3 ML SYRINGE SUBCUT SCH (09:02)
[2020-09-10] MEDS: ROSUVASTATIN 20 MG TABLET PO SCH (20:34)
[2020-09-10] MEDS: SERTRALINE 50 MG TABLET PO SCH (20:34)
[2020-09-11] MEDS: ceFAZolin 2,000 MG in PREMIX 1 EACH IV SCH ×2 (00:48→08:30)
[2020-09-11 06:53] LABS: Basophils % 0.4 % (0.0-0.8); Eosinophils # 0.1 10*3/uL (0.0-0.87); Eosinophils % 2.2 % (0.00-10.9); Hematocrit 24.9 VOL% (42.0-52.0); Hemoglobin 8.2 GM/DL (14.0-18.0); Immature Granulocytes % 0.5 %; Immature Granulocytes Absolute 0.03 #; Lymphocytes # 0.6 10*3/uL (1.4-4.0); Lymphocytes % 11.2 % (21.2-54.2); Mean Corpuscular HGB Conc 32.9 GM/DL (32-36); Mean Corpuscular Volume 95.8 FL (87-102); Mean Platelet Volume 9.3 FL (9.6-12.0); Monocytes % 7.9 % (1.7-12.7); Neutrophils % 77.8 % (38.7-73.9); Platelet Count 200 T/CUMM (130-400); Red Cell Distribution Width 12.6 % (9.3-17.3); White Blood Count 5.5 T/CUMM (4-12)
[2020-09-11 07:17] LABS: Calcium 8.7 MG/DL (8.5-10.1); Osmolality,Calculated 276.4 MOS/KG (273-304); Potassium 3.8 MMOL/L (3.5-5.1)
[2020-09-11] MEDS: CLOPIDOGREL 75 MG TABLET PO SCH (08:25)
[2020-09-11] MEDS: SODIUM BICARBONATE 650 MG TABLET PO SCH (08:25)
[2020-09-11] MEDS: ASPIRIN EC 81 MG TABLET PO SCH (08:26)
[2020-09-11] MEDS: ENOXAPARIN 30 MG/0.3 ML SYRINGE SUBCUT SCH (08:26)
[2020-09-11 11:24] VITALS: BP 110/52
== END 2020-09-11 12:57 | disposition home health service (06) | DRG 206 ==
LOC: N.TELEN → SUATTDRO 13:03
PROVIDERS: ADMIT Internal Medicine; ATTEND Internal Medicine

== ENCOUNTER 2022-01-10 05:56 | Observation (INO) ==
[2022-01-10] MEDS ORDERED: ONDANSETRON 4 MG/2 ML VIAL IV ONE (06:34)
[2022-01-10] MEDS ORDERED: ONDANSETRON 4 MG/2 ML VIAL ONE (06:38)
[2022-01-10] MEDS ORDERED: POTASSIUM CHLORIDE RIDER 10 MEQ/100 ML PREMIX IV PRN (06:44)
[2022-01-10] MEDS ORDERED: ASPIRIN 325 MG TABLET PO ONE (06:44)
[2022-01-10] MEDS ORDERED: diphenhydrAMINE CAP 50 MG CAPSULE PO ONE (06:44)
[2022-01-10] MEDS ORDERED: DIAZEPAM 5 MG TABLET PO ONE (06:44)
[2022-01-10] MEDS ORDERED: MAGNESIUM SULF RIDER 2 GM/50 ML PREMIX IV PRN (06:44)
[2022-01-10] MEDS ORDERED: diphenhydrAMINE CAP 50 MG CAPSULE ONE (06:51)
[2022-01-10] MEDS ORDERED: ASPIRIN 325 MG TABLET ONE (06:52)
[2022-01-10] MEDS ORDERED: DIAZEPAM 5 MG TABLET ONE (06:52)
[2022-01-10] MEDS: SODIUM CHLORIDE 0.9% 1,000 ML IV SCH ×4 (06:53→23:35)
[2022-01-10] MEDS ORDERED: HEPARIN/NACL 0.9% 2 UNITS/ML 2,000 UNIT/1,000 ML BAG IV ONE (06:56)
[2022-01-10] MEDS ORDERED: MIDAZOLAM 2 MG/2 ML VIAL ONE ×2 (07:29→07:44)
[2022-01-10] MEDS ORDERED: HYDROmorphone 1 MG/1 ML SYRINGE ONE ×3 (07:29→07:44)
[2022-01-10] MEDS ORDERED: diphenhydrAMINE 50 MG/1 ML VIAL ONE (07:36)
[2022-01-10] MEDS ORDERED: LABETALOL 20 MG/4 ML SYRINGE IV ONE (07:52)
[2022-01-10] MEDS ORDERED: BIVALIRUDIN 250 MG VIAL IV ONE (07:56)
[2022-01-10] MEDS ORDERED: TICAGRELOR 90 MG TABLET ONE (08:14)
[2022-01-10] MEDS ORDERED: NITROGLYCERIN SL 0.4 MG TABLET SL PRN (08:27)
[2022-01-10] MEDS ORDERED: ZALEPLON 5 MG CAPSULE PO PRN (08:27)
[2022-01-10 08:52] LABS: Albumin 3.3 G/DL (3.4-5.0); Bilirubin,Direct 0.27 MG/DL (0.0-0.20); Bilirubin,Indirect 0.5 MG/DL (0.0-1.0); Bilirubin,Total 0.8 MG/DL (0.20-1.00); Risk Ratio 7.68; VLDL Cholesterol 119.8 MG/DL
[2022-01-10] MEDS ORDERED: ROSUVASTATIN 20 MG TABLET PO SCH (09:00)
[2022-01-10] MEDS: MULTIVITAMIN (CENTRUM) TABLET PO SCH (11:18)
[2022-01-10] MEDS: TICAGRELOR 90 MG TABLET PO SCH ×2 (11:20→20:28)
[2022-01-10] MEDS: gemfibroziL 600 MG TABLET PO SCH ×2 (11:21→20:27)
[2022-01-10] MEDS: carvediloL 6.25 MG TABLET PO SCH ×2 (11:21→20:28)
[2022-01-10] MEDS: LOSARTAN 50 MG TABLET PO SCH (11:21)
[2022-01-10] MEDS: PANTOPRAZOLE 40 MG TABLET PO SCH ×2 (11:22→20:28)
[2022-01-10] MEDS: SODIUM BICARBONATE 650 MG TABLET PO SCH ×2 (11:22→20:27)
[2022-01-10] MEDS: POTASSIUM CHLORIDE 10 MEQ TABLET PO SCH (11:22)
[2022-01-10] MEDS: ASPIRIN CHEW 81 MG TABLET PO SCH (11:23)
[2022-01-10] MEDS ORDERED: SERTRALINE 50 MG TABLET PO SCH (21:00)
[2022-01-11 05:15] LABS: Basophils % 0.5 % (0.0-0.8); Eosinophils # 0.1 10*3/uL (0.0-0.87); Eosinophils % 1.5 % (0.00-10.9); Hematocrit 38.2 VOL% (42.0-52.0); Hemoglobin 13.2 GM/DL (14.0-18.0); Immature Granulocytes % 0.5 %; Immature Granulocytes Absolute 0.02 #; Lymphocytes % 24.6 % (21.2-54.2); Mean Corpuscular HGB Conc 34.6 GM/DL (32-36); Mean Corpuscular Volume 94.8 FL (87-102); Monocytes # 0.4 10*3/uL (0.11-0.8); Monocytes % 11.2 % (1.7-12.7); Neutrophils % 61.7 % (38.7-73.9); Platelet Count 112 T/CUMM (130-400); Red Blood Count 4.03 MC/CUMM (3.8-5.5); Red Cell Distribution Width 12.8 % (9.3-17.3); White Blood Count 3.9 T/CUMM (4-12)
[2022-01-11 05:36] LABS: Calcium 8.4 MG/DL (8.5-10.1); Osmolality,Calculated 278.4 MOS/KG (273-304); Potassium 3.7 MMOL/L (3.5-5.1)
[2022-01-11] MEDS: SODIUM CHLORIDE 0.9% 1,000 ML IV SCH (08:20)
[2022-01-11 08:45] VITALS: BP 140/86
[2022-01-11] MEDS ORDERED: ROSUVASTATIN 20 MG TABLET PO SCH (09:00)
[2022-01-11] MEDS ORDERED: FENOFIBRATE 145 MG TABLET PO SCH (09:00)
[2022-01-11] MEDS: PANTOPRAZOLE 40 MG TABLET PO SCH (09:40)
[2022-01-11] MEDS: ASPIRIN CHEW 81 MG TABLET PO SCH (09:40)
[2022-01-11] MEDS: MULTIVITAMIN (CENTRUM) TABLET PO SCH (09:40)
[2022-01-11] MEDS: LOSARTAN 50 MG TABLET PO SCH (09:40)
[2022-01-11] MEDS: POTASSIUM CHLORIDE 10 MEQ TABLET PO SCH (09:40)
[2022-01-11] MEDS: SODIUM BICARBONATE 650 MG TABLET PO SCH (09:41)
[2022-01-11] MEDS: TICAGRELOR 90 MG TABLET PO SCH (09:41)
[2022-01-11] MEDS: gemfibroziL 600 MG TABLET PO SCH (09:41)
[2022-01-11] MEDS: carvediloL 6.25 MG TABLET PO SCH (09:41)
== END 2022-01-11 11:09 | disposition home or self-care (01) ==
LOC: N.CL 05:56 → N.TELEN 05:56 → N.CL 05:57 → N.TELEN 08:58
PROVIDERS: ADMIT Internal Medicine Cardiovascular Disease; ATTEND Internal Medicine Cardiovascular Disease
PROC: CLCCHCL (ICD-10-PCS; 2022-01-10 07:45)